=== PATIENT | male | born 1965 | race Caucasian/White ===

== ENCOUNTER 2016-12-14 04:17 | Inpatient (IN) | payer BC ==
[~2016-12-14] VITALS: Ht 177.8 cm; Wt 99.8 kg
[~2016-12-14 04:17] MED LIST: AC325T; CEPH-38 PO; HYDR1TAB3 PO; LEVO750T6 PO; NAPR-243 PO; OMEP20CA6 PO; PRM25T; TRAM50TA2 PO
[2016-12-14] MEDS ORDERED: CLINDAMYCIN INJECTION 900 MG in NS (IVPB) 50 ML IV ONE (04:45)
[2016-12-14 04:49] LABS: BASOPHILS % (AUTO) 0 % (0-10); EOSINOPHILS # (AUTO) 0.2 10^3/uL (0.0-0.3); EOSINOPHILS % (AUTO) 2 % (0-10); LYMPHOCYTES # (AUTO) 2.6 X 10^3 (1.0-4.0); LYMPHOCYTES % (AUTO) 29 % (12-44); MEAN CORPUSCULAR HEMOGLOBIN 32 PG (25-34); MEAN CORPUSCULAR HGB CONC 34 G/DL (32-36); MEAN CORPUSCULAR VOLUME 92 FL (80-99); MEAN PLATELET VOLUME 10.3 FL (7.4-10.4); MONOCYTES # (AUTO) 1.2 X 10^3 (0.0-1.0); MONOCYTES % (AUTO) 13 % (0-12); NEUTROPHILS # (AUTO) 5.1 X 10^3 (1.8-7.8); NEUTROPHILS % (AUTO) 56 % (42-75); PLATELET COUNT 223 10^3/uL (130-400); RED BLOOD COUNT 4.47 10^6/uL (4.35-5.85); RED CELL DISTRIBUTION WIDTH 13.2 % (10.0-14.5); WHITE BLOOD COUNT 9.3 10^3/uL (4.3-11.0)
[2016-12-14 05:00] LABS: PROTHROMBIN TIME PATIENT 13.2 SEC (12.2-14.7)
[2016-12-14] MEDS ORDERED: methylPREDNISolone 125 MG (Solu-MEDROL) VIAL IVP ONE (05:00)
[2016-12-14] MEDS ORDERED: Calcium 500 + Vit D (05:04)
[2016-12-14] MEDS ORDERED: Potassium (05:04)
[2016-12-14] MEDS ORDERED: LORA10TA76 PO (05:04)
[2016-12-14] MEDS ORDERED: MULT-1029 PO (05:04)
[2016-12-14 05:10] LABS: ALANINE AMINOTRANSFERASE 47 U/L (0-55); ALBUMIN 3.8 GM/DL (3.2-4.5); ANION GAP 11 MMOL/L (5-14); ASPARTATE AMINO TRANSFERASE 23 U/L (5-34); BILIRUBIN,TOTAL 0.6 MG/DL (0.1-1.0); BLOOD UREA NITROGEN 11 MG/DL (7-18); BUN/CREATININE RATIO 15; CARBON DIOXIDE 22 MMOL/L (21-32); CHLORIDE 107 MMOL/L (98-107); CREATININE SERUM 0.74 MG/DL (0.60-1.30); GFR ESTIMATED > 60; GLUCOSE 101 MG/DL (70-105); POTASSIUM 3.9 MMOL/L (3.6-5.0); SODIUM 140 MMOL/L (135-145); TOTAL PROTEIN 6.6 GM/DL (6.4-8.2); hs C REACTIVE PROTEIN 1.52 MG/DL (0.00-0.50)
--- NOTE | 2016-12-14 05:12 | ED Lower Extremity ---
General Chief Complaint: Skin/Wound Problems Stated Complaint: RT LEG SWELLING,FEVER Nursing Triage Note: Pt reports edema and redness began in RLE yesterday evening around 1900. Pt Hx of cellulitis with admissions. Nursing Sepsis Screen: No Definite Risk Source: patient History of Present Illness Time seen by provider: 04:35 Initial Comments PT C/O RIGHT LOWER LEG REDNESS, PAIN AND SWELLING SINCE 1899 LAST EVENING PT HAS HAD FEVER--WAS 98.9--PT STATES HIS NORMAL TEMP IS 96.5 NO PARESTHESIAS OR MOTOR DEFICITS PT HAS HAD CELLULITIS OF THIS LEG MULTIPLE TIMES, CLAIMS IT ALL STARTED AFTER HE SPRAINED THE RIGHT ANKLE IN 1986 LAST EPISODE WAS 2010 PT HAS DRY, CRACKED FEET AND HAS HAD 3 OPEN AREAS ON THE BOTTOM OF HIS RIGHT FOOT FOR THE LAST 3 DAYS--VERY PAINFUL. HAS BEEN TREATING WITH ANTIBIOTIC OINTMENT AND KEEPING AREAS COVERED AND THEY ARE GETTING BETTER. PCP: DR. CASANOVA Allergies and Home Medications Allergies Coded Allergies: No Known Drug Allergies (Verified , 10/22/08) Home Medications Loratadine 10 Mg Tablet, 10 MG PO DAILY, (Reported) Multivit-Min/FA/Lycopene/Lut 1 Each Tablet, 1 EACH PO DAILY, (Reported) [Calcium 500 + Vit D] , (Reported) [Potassium] , (Reported) Constitutional: see HPI, fever Respiratory: no symptoms reported, No dyspnea on exertion, No short of breath Cardiovascular: no symptoms reported, No chest pain, No palpitations, No syncope Gastrointestinal: no symptoms reported Genitourinary: no symptoms reported Musculoskeletal: see HPI Skin: see HPI Psychiatric/Neurological: No Symptoms Reported Past Cxalahf-Mkbctj-Tovtae Hx Patient Social History Alcohol Use: Denies Use Recreational Drug Use: No Smoking Status: Former Smoker Type Used: Cigarettes Former Smoker/When Quit: Dec 25, 1997 Recent Foreign Travel: No Contact w/Someone Who Travel: No Recent Infectious Disease Expo: No Recent Hopitalizations: No Seasonal Allergies Seasonal Allergies: No Surgeries HX Surgeries: Yes Surgeries: Orthopedic Respiratory Hx Respiratory Disorders: No Cardiovascular Hx Cardiac Disorders: No Neurological Hx Neurological Disorders: Yes (CLOSED HEAD INJURY, SUBDURAL HEMATOMA) Neurological Disorders: Traumatic Brain Injury Reproductive System Hx Reproductive Disorders: No Sexually Transmitted Disease: No Genitourinary Hx Genitourinary Disorders: No Gastrointestinal Hx Gastrointestinal Disorders: No Musculoskeletal Hx Musculoskeletal Disorders: Yes (RIGHT ANKLE SPRAIN 1986. ) Endocrine Hx Endocrine Disorders: No HEENT HX ENT Disorders: No Cancer Hx Cancer: No Psychosocial Hx Psychiatric Problems: No Integumentary HX Skin/Integumentary Disorder: Yes (CELLULITIS RIGHT LEG MULTIPLE TIMES) Blood Transfusions Hx Blood Disorders: No Physical Exam Vital Signs Vital Sign - Last 12Hours 12/14/16 04:26 Temp 98.6 Pulse 80 Resp 20 B/P (MAP) 147/81 Pulse Ox 95 O2 Delivery Room Air Capillary Refill : Less Than 3 Seconds General Appearance: WD/WN, no apparent distress Cardiovascular: normal peripheral pulses (+ 2-3/4 BILATERALLY), regular rate, rhythm, no murmur Respiratory: normal breath sounds, no respiratory distress, no accessory muscle use Gastrointestinal: soft Hips: bilateral hip normal inspection Legs: right leg other (RIGHT LOWER LEG AND FOOT WITH 2+ EDEMA: ERYTHEMA AND WARMTH TO LOWER LEG WITH TENDERNESS--EXTENDS TO JUST BELOW KNEE; RIGHT FOOT WITH FISSURING AND CRACKING TO SOLE OF FOOT AND BETWEEN TOES--? TINEA PEDIS ? . NO SIGNIFICANT ERYTHEMA OR TENDERNESS TO FOOT. MOTOR/SENSORY/VASCULAR INTACT. 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 as tested, no motor/sensory deficits, alert, normal mood/affect, oriented x 3 Skin: normal color, warm/dry, other ( ABOVE) Progress/Results/Core Measures Results/Orders Lab Results Laboratory Tests Test 12/14/16 04:35 Range/Units White Blood Count 9.3 4.3-11.0 10^3/uL Red Blood Count 4.47 4.35-5.85 10^6/uL Hemoglobin 14.1 13.3-17.7 G/DL Hematocrit 41 40-54 % Mean Corpuscular Volume 92 80-99 FL Mean Corpuscular Hemoglobin 32 25-34 PG Mean Corpuscular Hemoglobin Concent 34 32-36 G/DL Red Cell Distribution Width 13.2 10.0-14.5 % Platelet Count 223 130-400 10^3/uL Mean Platelet Volume 10.3 7.4-10.4 FL Neutrophils (%) (Auto) 56 42-75 % Lymphocytes (%) (Auto) 29 12-44 % Monocytes (%) (Auto) 13 H 0-12 % Eosinophils (%) (Auto) 2 0-10 % Basophils (%) (Auto) 0 0-10 % Neutrophils # (Auto) 5.1 1.8-7.8 X 10^3 Lymphocytes # (Auto) 2.6 1.0-4.0 X 10^3 Monocytes # (Auto) 1.2 H 0.0-1.0 X 10^3 Eosinophils # (Auto) 0.2 0.0-0.3 10^3/uL Basophils # (Auto) 0.0 0.0-0.1 10^3/uL Prothrombin Time 13.2 12.2-14.7 SEC INR Comment 1.0 0.8-1.4 Activated Partial Thromboplast Time 31 24-35 SEC Sodium Level 140 135-145 MMOL/L Potassium Level 3.9 3.6-5.0 MMOL/L Chloride Level 107 98-107 MMOL/L Carbon Dioxide Level 22 21-32 MMOL/L Anion Gap 11 5-14 MMOL/L Blood Urea Nitrogen 11 7-18 MG/DL Creatinine 0.74 0.60-1.30 MG/DL Estimat Glomerular Filtration Rate > 60 BUN/Creatinine Ratio 15 Glucose Level 101 70-105 MG/DL Lactic Acid Level 1.54 0.50-2.00 MMOL/L Calcium Level 9.0 8.5-10.1 MG/DL Total Bilirubin 0.6 0.1-1.0 MG/DL Aspartate Amino Transf (AST/SGOT) 23 5-34 U/L Alanine Aminotransferase (ALT/SGPT) 47 0-55 U/L Alkaline Phosphatase 54 40-136 U/L C-Reactive Protein High Sensitivity 1.52 H 0.00-0.50 MG/DL Total Protein 6.6 6.4-8.2 GM/DL Albumin 3.8 3.2-4.5 GM/DL My Orders Orders - GERRY GOMEZ DO Saline Lock/Iv-Start (12/14/16 04:33) Cbc With Automated Diff (12/14/16 04:33) Comprehensive Metabolic Panel (12/14/16 04:33) Hs C Reactive Protein (12/14/16 04:33) Lactic Acid Analyzer (12/14/16 04:33) Protime With Inr (12/14/16 04:33) Partial Thromboplastin Time (12/14/16 04:33) Blood Culture (12/14/16 04:33) Clindamycin Injection (Cleocin Injection (12/14/16 04:45) Methylprednisolone Sod Succ (Solu-Medrol (12/14/16 05:00) Vital Signs/I&O Vital Sign - Last 12Hours 12/14/16 04:26 Temp 98.6 Pulse 80 Resp 20 B/P (MAP) 147/81 Pulse Ox 95 O2 Delivery Room Air Blood Pressure Mean: 103 Departure Communication Progress Notes 0515--SPOKE WITH DR. CASANOVA, ACCEPTS PT FOR ADMIT. Impression Impression: Primary Impression: CELLULITIS RIGHT LOWER LEG AND FOOT Disposition: ADMITTED INPATIENT Condition: Stable Decision to Admit Reason: Admit from ER (General) Decision to Admit/Date: Dec 14, 2016 Time/Decision to Admit Time: 05:15 Departure-Patient Inst. Referrals: SIOMARA CASANOVA DO (PCP/Family) Primary Care Physician GERRY GOMEZ DO Dec 14, 2016 05:12
[2016-12-14 05:55] VITALS: BP 127/86
--- NOTE | 2016-12-14 08:01 | History & Physicial ---
History of Present Illness History of Present Illness Reason for visit/HPI swelling and redness of right lower extremity. Patient came To the emergency room. Onset since Monday. Redness up to the right knee. Past history cellulitis of right leg multiple times. Patient has dry cracked feet and has 3 open areas on his right foot last 3 days. Patient used triple antibiotic ointment and cover them. Right foot and ankle red and swollen. Has splits on bottom of foot 3 tears. Surgeries right ankle arthroscopy and right shoulder. Family history has cancer, heart and diabetes Date of Admission Dec 14, 2016 at 05:15 Time Seen by Provider: 07:45 I consulted on this patient on 12/14/16 07:56 Attending Physician Jamal Casanova DO Admitting Physician Jamal Casanova DO Consult Allergies and Home Medications Allergies Coded Allergies: No Known Drug Allergies (Verified , 10/22/08) Home Medications Loratadine 10 Mg Tablet, 10 MG PO DAILY, (Reported) Multivit-Min/FA/Lycopene/Lut 1 Each Tablet, 1 EACH PO DAILY, (Reported) [Calcium 500 + Vit D] , (Reported) [Potassium] , (Reported) Past Mdoyeec-Fjtyng-Terbqk Hx Patient Social History Marrital Status: Alcohol Use: Denies Use Recreational Drug Use: No Smoking Status: Former Smoker Former smoker/When Quit: Dec 25, 1997 Type Used: Cigarettes Recent Foreign Travel: No Contact w/other who traveled: No Recent Hopitalizations: No Recent Infectious Disease Expo: No Seasonal Allergies Seasonal Allergies: No Surgeries HX Surgeries: Yes Surgeries: Orthopedic Respiratory Hx Respiratory Disorders: No Cardiovascular Hx Cardiovascular Disorders: No Neurological Hx Neurological Disorders: Yes (CLOSED HEAD INJURY, SUBDURAL HEMATOMA) Neurological Disorders: Traumatic Brain Injury Reproductive System Hx Reproductive Disorders: No Sexually Transmitted Disease: No Genitourinary Hx Genitourinary Disorders: No Gastrointestinal Hx Gastrointestinal Disorders: No Musculoskeletal Hx Musculoskeletal Disorders: Yes (RIGHT ANKLE SPRAIN 1986. ) Endocrine Hx Endocrine Disorders: No HEENT HX ENT Disorders: No Cancer Hx Cancer: No Psychosocial Hx Psychiatric Problems: No Integumentary HX Skin/Integumentary Disorder: Yes (CELLULITIS RIGHT LEG MULTIPLE TIMES) Blood Transfusions Hx Blood Disorders: No Constitutional: other (redness and swelling right leg to the knee) EENTM: no symptoms reported Respiratory: no symptoms reported Cardiovascular: no symptoms reported Gastrointestinal: no symptoms reported Genitourinary: no symptoms reported Skin: other (cellulitis right leg) Psychiatric/Neurological: No Symptoms Reported Physical Exam Vital Signs Vital Sign - Last 12Hours 12/14/16 04:26 Temp 98.6 Pulse 80 Resp 20 B/P (MAP) 147/81 Pulse Ox 95 O2 Delivery Room Air Capillary Refill : Less Than 3 Seconds General Appearance: No Apparent Distress, WD/WN Eyes: Bilateral Eye Normal Inspection HEENT: Normal ENT Inspection Neck: Full Range of Motion, Normal Inspection Respiratory: Chest Non Tender, Lungs Clear, Normal Breath Sounds, No Accessory Muscle Use, No Respiratory Distress Cardiovascular: Regular Rate, Rhythm, No Murmur Gastrointestinal: Non Tender, Soft Extremity: Swelling, Other (redness right extremity lower) Assessment/Plan Assessment and Plan cellulitis right lower leg and foot Problems: Clinical Quality Measures DVT/VTE Risk/Contraindication: Risk Factor Score Per Nursin RFS Level Per Nursing on Admit: 3=High JAMAL CASANOVA DO Dec 14, 2016 08:01
[2016-12-14 08:12] VITALS: BP 146/81
[2016-12-14] MEDS ORDERED: OMEP20TA33 PO (08:20)
[2016-12-14] MEDS ORDERED: POTA99TA21 PO (08:20)
[2016-12-14] MEDS ORDERED: CALC-654 PO (08:20)
[2016-12-14] MEDS ORDERED: CALC300T4 PO (08:24)
[2016-12-14] MEDS ORDERED: ACET325T38 PO (08:24)
--- NOTE | 2016-12-14 09:50 | Diagnostic Imaging Report ---
EXAMINATION: Right lower extremity duplex venous ultrasound. TECHNIQUE: DVT protocol. Multiple sonographic images with color Doppler and waveform interrogation were performed of the right lower extremity veins with compression and augmentation maneuvers. INDICATION: Right leg redness. Cellulitis.. FINDINGS: The right lower extremity veins from the groin to below the knee veins were examined with normal color-flow, compressibility and normal waveform demonstrated. The great saphenous vein is patent. IMPRESSION: No evidence of DVT in the right lower extremity. Dictated by: Dictated on workstation # [id number]
[2016-12-14] MEDS: ENOXAPARIN 40 MG/0.4 ML (LOVENOX) SYR SC SCH (09:56)
[2016-12-14 12:04] VITALS: BP 143/73
[2016-12-14] MEDS: CLINDAMYCIN INJECTION 900 MG in NS (IVPB) 50 ML IV SCH ×2 (14:28→21:40)
[2016-12-14 16:00] VITALS: BP 149/71
--- NOTE | 2016-12-14 17:20 | Podiatry Progress Note ---
Standard Progress Note Progress Notes/Assess & Plan Date Seen by Provider: Dec 14, 2016 Time Seen by Provider: 17:15 Progress/Assessment & Plan Consult dictated. Recommend lotion to the feet daily. We discussed use of occlusion to help the moisture penetrate the skin. I also recommend use of compression hose daily once the cellulitis has resolved. He could also benefit from a soft cast with a unna boot. Continue IV antibotics. He is welcome to follow up in the office upon discharge. Final Diagnosis Cellulitis right leg Idiopathic neuropathy Fissures right foot Edema right foot/ankle/leg Sinus Tarsitis right CARA BISWAS DPM Dec 14, 2016 17:20
[2016-12-14 19:50] VITALS: BP 123/56
[2016-12-15] VITALS: BP 130/68
[2016-12-15] MEDS: CLINDAMYCIN INJECTION 900 MG in NS (IVPB) 50 ML IV SCH ×3 (05:34→21:30)
[2016-12-15 05:41] LABS: BASOPHILS % (AUTO) 0 % (0-10); EOSINOPHILS % (AUTO) 0 % (0-10); LYMPHOCYTES # (AUTO) 2.1 X 10^3 (1.0-4.0); LYMPHOCYTES % (AUTO) 12 % (12-44); MEAN CORPUSCULAR HEMOGLOBIN 31 PG (25-34); MEAN CORPUSCULAR HGB CONC 34 G/DL (32-36); MEAN CORPUSCULAR VOLUME 92 FL (80-99); MEAN PLATELET VOLUME 10.5 FL (7.4-10.4); MONOCYTES # (AUTO) 1.6 X 10^3 (0.0-1.0); MONOCYTES % (AUTO) 9 % (0-12); NEUTROPHILS # (AUTO) 14.5 X 10^3 (1.8-7.8); NEUTROPHILS % (AUTO) 79 % (42-75); PLATELET COUNT 252 10^3/uL (130-400); RED BLOOD COUNT 4.33 10^6/uL (4.35-5.85); RED CELL DISTRIBUTION WIDTH 13.3 % (10.0-14.5); WHITE BLOOD COUNT 18.3 10^3/uL (4.3-11.0)
[2016-12-15 05:59] LABS: BAND NEUTROPHILS 2 %; BASOPHILS % (MANUAL) 0 %; EOSINOPHILS % (MANUAL) 0 %; LYMPHOCYTES % (MANUAL) 8 %; NEUTROPHILS % (MANUAL) 83 %; REACTIVE LYMPHOCYTES 4 %
[2016-12-15 06:08] LABS: ALANINE AMINOTRANSFERASE 45 U/L (0-55); ALBUMIN 3.6 GM/DL (3.2-4.5); ANION GAP 9 MMOL/L (5-14); ASPARTATE AMINO TRANSFERASE 20 U/L (5-34); BILIRUBIN,TOTAL 0.4 MG/DL (0.1-1.0); BLOOD UREA NITROGEN 13 MG/DL (7-18); BUN/CREATININE RATIO 18; CALCIUM 8.7 MG/DL (8.5-10.1); CARBON DIOXIDE 22 MMOL/L (21-32); CHLORIDE 110 MMOL/L (98-107); CREATININE SERUM 0.73 MG/DL (0.60-1.30); GFR ESTIMATED > 60; GLUCOSE 114 MG/DL (70-105); SODIUM 141 MMOL/L (135-145); TOTAL PROTEIN 6.3 GM/DL (6.4-8.2)
[2016-12-15 07:32] VITALS: BP 122/66
--- NOTE | 2016-12-15 07:53 | Progress Note (SOAP) ---
Subjective Time Seen by Provider: 07:45 Subjective/Events-last exam cellulitis right lower leg and foot and ankle. White blood cell count 18,000 today may be due to Solu-Medrol. Patient afebrile. Redness and leg much better. Patient consulted by podiatry. Patient in the right direction. To evaluate White blood cell count tomorrow Objective Exam Vital Signs Date Time Temp Pulse Resp B/P (MAP) Pulse Ox O2 Delivery O2 Flow Rate FiO2 12/15/16 07:32 97.1 86 20 122/66 95 Room Air 12/15/16 00:00 97.1 93 20 130/68 94 Room Air 12/14/16 19:50 99.3 103 18 123/56 94 Room Air 12/14/16 16:00 99.3 112 20 149/71 93 Room Air 12/14/16 12:04 97.7 109 20 143/73 95 Room Air 12/14/16 08:12 98.6 83 20 146/81 94 Room Air 12/14/16 08:00 Room Air I & O 12/15/16 07:00 Intake Total 6650 ml Output Total 1600 ml Balance 5050 ml Capillary Refill : Less Than 3 SecondsLess Than 3 Seconds General Appearance: No Apparent Distress, WD/WN HEENT: Normal ENT Inspection Neck: Full Range of Motion, Normal Inspection Respiratory: Lungs Clear, Normal Breath Sounds, No Accessory Muscle Use, No Respiratory Distress Cardiovascular: Regular Rate, Rhythm Extremity: Other (swelling going down and redness better) Results Lab Laboratory Tests 12/15/16 05:25: White Blood Count 18.3H, Red Blood Count 4.33L, Hemoglobin 13.5, Hematocrit 40, Mean Corpuscular Volume 92, Mean Corpuscular Hemoglobin 31, Mean Corpuscular Hemoglobin Concent 34, Red Cell Distribution Width 13.3, Platelet Count 252, Mean Platelet Volume 10.5H, Neutrophils (%) (Auto) 79H, Lymphocytes (%) (Auto) 12, Monocytes (%) (Auto) 9, Eosinophils (%) (Auto) 0, Basophils (%) (Auto) 0, Neutrophils # (Auto) 14.5H, Lymphocytes # (Auto) 2.1, Monocytes # (Auto) 1.6H, Eosinophils # (Auto) 0.0, Basophils # (Auto) 0.0, Neutrophils % (Manual) 83, Lymphocytes % (Manual) 8, Monocytes % (Manual) 3, Eosinophils % (Manual) 0, Basophils % (Manual) 0, Band Neutrophils 2, Reactive Lymphocytes 4, Blood Morphology Comment NORMAL, Sodium Level 141, Potassium Level 4.0, Chloride Level 110H, Carbon Dioxide Level 22, Anion Gap 9, Blood Urea Nitrogen 13, Creatinine 0.73, Estimat Glomerular Filtration Rate > 60, BUN/Creatinine Ratio 18, Glucose Level 114H, Calcium Level 8.7, Total Bilirubin 0.4, Aspartate Amino Transf (AST/SGOT) 20, Alanine Aminotransferase (ALT/SGPT) 45, Alkaline Phosphatase 53, Total Protein 6.3L, Albumin 3.6 Assessment/Plan Assessment/Plan Assess & Plan/Chief Complaint cellulitis of right leg/ankle/foot. Leukocytosis received Solu-Medrol. Swelling is coming down. Redness is better. Patient in the right direction Clinical Quality Measures DVT/VTE Risk/Contraindication: Risk Factor Score Per Nursin RFS Level Per Nursing on Admit: 3=High Contraindications-Mechi: Other *list below* SIOMARA CASANOVA DO Dec 15, 2016 07:53
[2016-12-15] MEDS: ENOXAPARIN 40 MG/0.4 ML (LOVENOX) SYR SC SCH (08:41)
--- NOTE | 2016-12-15 10:03 | CONSULTATION REPORT ---
DATE OF CONSULTATION: 12/14/2016 REFERRING PHYSICIAN: REASON FOR CONSULT: Foot care. The patient has a history of cellulitis of the right lower extremity causing fissures and cracks and infection of the right lower extremity. He also has a history of right ankle injury. The original injury for the right ankle occurred in 1986. He was last seen by an orthopedic doctor for the right ankle in 2000. The patient indicates that his feet will crack, he will apply a topical antibiotic ointment, keep the area covered until it heals. He has had lower extremity edema being on his feet excessively and he believes that the ankle injury is a contributing factor as well. He develops cellulitis due to the edema of the right lower extremity. He has had several CESILIA hose that he has applied but they seem to cut into the skin right below the knee and after a few days of using them, he has more problems than the CESILIA hose had solved. PAST MEDICAL HISTORY: Includes: 1. Traumatic brain injury. 2. Subdural hematoma. 3. Right ankle sprain in 1986. 4. History of cellulitis of the right lower extremity, at least 4 episodes. 5. History of skin fissures with no specific infection or deep wound right foot. SOCIAL HISTORY: The patient is a former smoker, quit in 1997. No alcohol or illicit drug use indicated. FAMILY HISTORY: His mother and sister have a history of diabetes. The patient is currently afebrile. LOWER EXTREMITY EXAMINATION: The patient has 2/4 dorsalis pedis pulse bilaterally, 1/4 posterior tibial pulse bilaterally. Capillary refill time is less than 3 seconds. Nonpitting edema is noted to the right lower extremity including the ankle and foot. DERMATOLOGICALLY: The patient has superficial fissures to the plantar aspect of the right mid foot area with no erythema, edema or gross signs of bacterial infection noted. No pain with palpation. NEUROLOGICALLY: The patient has intact protective sensation per 10 grams monofilament wire examination bilaterally. There is slight decreased in the vibratory sensation on the left but there is significant decreased vibratory sensation on the right. Deep tendon reflexes to the Achilles tendon are also diminished bilaterally. MUSCULOSKELETAL FINDINGS: The patient has some pain with palpation to the sinus tarsi region as well as the anterior talofibular area of the right lower extremity. There is no pain with passive reasonable range of motion of the ankle joint, subtalar joint, metatarsal joint right foot. ASSESSMENT: 1. Idiopathic neuropathy that could be prediabetic condition. 2. Edema of the right lower extremity with cellulitis. 3. Fissures, right foot noninfected. 4. History of ankle injury and sinus tarsitis right foot. PLAN: Various treatment options were discussed with the patient. I recommend that lotion be applied to the feet daily but not between the toes. We discussed the use of occlusion for the fissures. He understands this process and will implement the instructions that I gave to him today. He is welcome to follow-up in the office once he is discharged. I also recommend compression hose once his cellulitis has resolved to maintain appropriate compression to the veins and avoid further cellulitis if possible. He has tried various compression hose in the past, I instructed the patient that we could fit him in the clinic upon discharge if he would like. Job ID: [id number] Dictated Date: 12/14/2016 17:13:50 Signalling And Communications Engineer Date: 12/15/2016 09:51:57/[email or web address]
[2016-12-15 15:19] VITALS: BP 134/75
[2016-12-16 00:44] VITALS: BP 108/55
[2016-12-16 05:51] LABS: BASOPHILS # (AUTO) 0.1 10^3/uL (0.0-0.1); BASOPHILS % (AUTO) 1 % (0-10); EOSINOPHILS % (AUTO) 0 % (0-10); LYMPHOCYTES # (AUTO) 3.6 X 10^3 (1.0-4.0); LYMPHOCYTES % (AUTO) 38 % (12-44); MEAN CORPUSCULAR HEMOGLOBIN 31 PG (25-34); MEAN CORPUSCULAR HGB CONC 34 G/DL (32-36); MEAN CORPUSCULAR VOLUME 92 FL (80-99); MEAN PLATELET VOLUME 10.4 FL (7.4-10.4); MONOCYTES # (AUTO) 0.8 X 10^3 (0.0-1.0); MONOCYTES % (AUTO) 9 % (0-12); NEUTROPHILS # (AUTO) 4.9 X 10^3 (1.8-7.8); NEUTROPHILS % (AUTO) 52 % (42-75); PLATELET COUNT 227 10^3/uL (130-400); RED BLOOD COUNT 4.29 10^6/uL (4.35-5.85); RED CELL DISTRIBUTION WIDTH 13.5 % (10.0-14.5); WHITE BLOOD COUNT 9.5 10^3/uL (4.3-11.0)
[2016-12-16] MEDS: CLINDAMYCIN INJECTION 900 MG in NS (IVPB) 50 ML IV SCH (05:52)
[2016-12-16 07:28] VITALS: BP 122/71
[2016-12-16] MEDS: ENOXAPARIN 40 MG/0.4 ML (LOVENOX) SYR SC SCH (07:51)
--- NOTE | 2016-12-16 08:07 | Progress Note (SOAP) ---
Subjective Time Seen by Provider: 08:00 Subjective/Events-last exam PATIENT DOING MUCH BETTER TODAY. Leg has no redness. Right leg does have some swelling. Patient be discharged today. Patient sent, clindamycin 300 mg number 18 one 3 times a day. 2 office next Monday at 330 p.m. Objective Exam Vital Signs Date Time Temp Pulse Resp B/P (MAP) Pulse Ox O2 Delivery O2 Flow Rate FiO2 12/16/16 07:28 97.5 72 20 122/71 98 Room Air 12/16/16 00:44 97.7 85 20 108/55 95 Room Air 12/15/16 15:19 98.6 81 20 134/75 95 Room Air I & O 12/16/16 07:00 Intake Total 3670 ml Balance 3670 ml Capillary Refill : Less Than 3 SecondsLess Than 3 Seconds General Appearance: No Apparent Distress, WD/WN HEENT: Normal ENT Inspection Neck: Full Range of Motion, Normal Inspection Respiratory: Chest Non Tender, Lungs Clear, Normal Breath Sounds, No Accessory Muscle Use, No Respiratory Distress Cardiovascular: Regular Rate, Rhythm, No Murmur Gastrointestinal: non tender Extremity: Swelling, Other (no redness in right leg has swelling still) Results Lab Laboratory Tests 12/16/16 05:25 Laboratory Tests 12/16/16 05:25: White Blood Count 9.5, Red Blood Count 4.29L, Hemoglobin 13.4, Hematocrit 40, Mean Corpuscular Volume 92, Mean Corpuscular Hemoglobin 31, Mean Corpuscular Hemoglobin Concent 34, Red Cell Distribution Width 13.5, Platelet Count 227, Mean Platelet Volume 10.4, Neutrophils (%) (Auto) 52, Lymphocytes (%) (Auto) 38 , Monocytes (%) (Auto) 9, Eosinophils (%) (Auto) 0, Basophils (%) (Auto) 1, Neutrophils # (Auto) 4.9, Lymphocytes # (Auto) 3.6, Monocytes # (Auto) 0.8, Eosinophils # (Auto) 0.0, Basophils # (Auto) 0.1 Microbiology 12/14/16 Blood Culture - Preliminary, Resulted No growth Radiology CATRACHITO MATHIAS REC#: [id number] PT STATUS: ADM IN : 1965 PHYSICIAN: SIOMARA CASANOVA DO ADMIT DATE: 12/14/16 Signed Date of Exam: 12/14/16 US VENOUS LOWER EXT RT EXAMINATION: Right lower extremity duplex venous ultrasound. TECHNIQUE: DVT protocol. Multiple sonographic images with color Doppler and waveform interrogation were performed of the right lower extremity veins with compression and augmentation maneuvers. INDICATION: Right leg redness. Cellulitis.. FINDINGS: The right lower extremity veins from the groin to below the knee veins were examined with normal color-flow, compressibility and normal waveform demonstrated. The great saphenous vein is patent. IMPRESSION: No evidence of DVT in the right lower extremity. Dictated by: Dictated on workstation # [id number] Dict: 12/14/16 0947 Trans: 12/14/16 0948 Interpreted by: GHANSHYAM COYNE MD Electronically signed by: GHANSHYAM COYNE MD 12/14/1648 Assessment/Plan Assessment/Plan Assess & Plan/Chief Complaint cellulitis of right leg/ankle/foot. Leukocytosis received Solu-Medrol. Swelling is coming down. Redness is better. Patient in the right direction. . 12/16/16. Cellulitis of right leg/ankle/foot. Redness is gone. This patient still has some swelling. To discharge today on clindamycin. 2 office on Monday. Leukocytosis better Clinical Quality Measures DVT/VTE Risk/Contraindication: Risk Factor Score Per Nursin RFS Level Per Nursing on Admit: 3=High Contraindications-Mechi: Other *list below* SIOMARA CASANOVA DO Dec 16, 2016 08:07
[2016-12-16] MEDS ORDERED: CLIN300C11 PO (08:43)
[2016-12-16] MEDS ORDERED: CLINDAMYCIN 150 MG (CLEOCIN) CAP PO ONE (14:00)
--- NOTE | 2016-12-20 07:25 | Discharge Summary ---
Diagnosis/Chief Complaint Date of Admission Dec 14, 2016 at 05:15 Date of Discharge Dec 16, 2016 at 09:10 Discharge Date: Dec 16, 2016 Discharge Time: 07:20 Admission Diagnosis Admission Diagnosis cellulitis right lower leg and foot Discharge Diagnosis cellulitis of right lower limb. Changes in skin texture. Leukocytosis probably due to Solu-Medrol. Edema right lower extremity area Pain in right ankle and joints of right foot. Personal history of nicotine dependence Fissures of right foot Reason Hospital Visit swelling and redness of right lower extremity. Patient came To the emergency room. Onset since Monday. Redness up to the right knee. Past history cellulitis of right leg multiple times. Patient has dry cracked feet and has 3 open areas on his right foot last 3 days. Patient used triple antibiotic ointment and cover them. Right foot and ankle red and swollen. Has splits on bottom of foot 3 tears. Surgeries right ankle arthroscopy and right shoulder. Family history has cancer, heart and diabetes Discharge Summary Consultations podiatry Discharge Physical Examination Allergies: Coded Allergies: No Known Drug Allergies (Verified , 10/22/08) Vitals & I&Os Vital Signs Date Time Temp Pulse Resp B/P (MAP) Pulse Ox O2 Delivery O2 Flow Rate FiO2 12/16/16 09:00 12/16/16 07:28 97.5 72 20 98 Room Air Hospital Course Labs (last 24 hrs) Laboratory Tests 12/14/16 04:35: White Blood Count 9.3, Red Blood Count 4.47, Hemoglobin 14.1, Hematocrit 41, Mean Corpuscular Volume 92, Mean Corpuscular Hemoglobin 32, Mean Corpuscular Hemoglobin Concent 34, Red Cell Distribution Width 13.2, Platelet Count 223, Mean Platelet Volume 10.3, Neutrophils (%) (Auto) 56, Lymphocytes (%) (Auto) 29 , Monocytes (%) (Auto) 13H, Eosinophils (%) (Auto) 2, Basophils (%) (Auto) 0, Neutrophils # (Auto) 5.1, Lymphocytes # (Auto) 2.6, Monocytes # (Auto) 1.2H, Eosinophils # (Auto) 0.2, Basophils # (Auto) 0.0, Prothrombin Time 13.2, INR Comment 1.0, Activated Partial Thromboplast Time 31, Sodium Level 140, Potassium Level 3.9, Chloride Level 107, Carbon Dioxide Level 22, Anion Gap 11, Blood Urea Nitrogen 11, Creatinine 0.74, Estimat Glomerular Filtration Rate > 60 , BUN/Creatinine Ratio 15, Glucose Level 101, Lactic Acid Level 1.54, Calcium Level 9.0, Total Bilirubin 0.6, Aspartate Amino Transf (AST/SGOT) 23, Alanine Aminotransferase (ALT/SGPT) 47, Alkaline Phosphatase 54, C-Reactive Protein High Sensitivity 1.52H, Total Protein 6.6, Albumin 3.8 12/15/16 05:25: White Blood Count 18.3H, Red Blood Count 4.33L, Hemoglobin 13.5, Hematocrit 40, Mean Corpuscular Volume 92, Mean Corpuscular Hemoglobin 31, Mean Corpuscular Hemoglobin Concent 34, Red Cell Distribution Width 13.3, Platelet Count 252, Mean Platelet Volume 10.5H, Neutrophils (%) (Auto) 79H, Lymphocytes (%) (Auto) 12, Monocytes (%) (Auto) 9, Eosinophils (%) (Auto) 0, Basophils (%) (Auto) 0, Neutrophils # (Auto) 14.5H, Lymphocytes # (Auto) 2.1, Monocytes # (Auto) 1.6H, Eosinophils # (Auto) 0.0, Basophils # (Auto) 0.0, Sodium Level 141, Potassium Level 4.0, Chloride Level 110H, Carbon Dioxide Level 22, Anion Gap 9, Blood Urea Nitrogen 13, Creatinine 0.73, Estimat Glomerular Filtration Rate > 60, BUN/ Creatinine Ratio 18, Glucose Level 114H, Calcium Level 8.7, Total Bilirubin 0.4 , Aspartate Amino Transf (AST/SGOT) 20, Alanine Aminotransferase (ALT/SGPT) 45, Alkaline Phosphatase 53, Total Protein 6.3L, Albumin 3.6, Neutrophils % (Manual ) 83, Lymphocytes % (Manual) 8, Monocytes % (Manual) 3, Eosinophils % (Manual) 0 , Basophils % (Manual) 0, Band Neutrophils 2, Reactive Lymphocytes 4, Blood Morphology Comment NORMAL 12/16/16 05:25: White Blood Count 9.5, Red Blood Count 4.29L, Hemoglobin 13.4, Hematocrit 40, Mean Corpuscular Volume 92, Mean Corpuscular Hemoglobin 31, Mean Corpuscular Hemoglobin Concent 34, Red Cell Distribution Width 13.5, Platelet Count 227, Mean Platelet Volume 10.4, Neutrophils (%) (Auto) 52, Lymphocytes (%) (Auto) 38 , Monocytes (%) (Auto) 9, Eosinophils (%) (Auto) 0, Basophils (%) (Auto) 1, Neutrophils # (Auto) 4.9, Lymphocytes # (Auto) 3.6, Monocytes # (Auto) 0.8, Eosinophils # (Auto) 0.0, Basophils # (Auto) 0.1 Microbiology 12/14/16 Blood Culture - Final, Complete No growth Laboratory Tests 12/14/16 04:35 12/15/16 05:25 12/16/16 05:25 Pending Labs Microbiology Date/Time Source Procedure Growth Status 12/14/16 05:13 Peripheral Rt Ac Blood Culture - Final No growth Complete 12/14/16 04:48 Peripheral Lt Ac Blood Culture - Final No growth Complete Laboratory Tests 12/14/16 04:35: White Blood Count 9.3, Red Blood Count 4.47, Hemoglobin 14.1, Hematocrit 41, Mean Corpuscular Volume 92, Mean Corpuscular Hemoglobin 32, Mean Corpuscular Hemoglobin Concent 34, Red Cell Distribution Width 13.2, Platelet Count 223, Mean Platelet Volume 10.3, Neutrophils (%) (Auto) 56, Lymphocytes (%) (Auto) 29 , Monocytes (%) (Auto) 13, Eosinophils (%) (Auto) 2, Basophils (%) (Auto) 0, Neutrophils # (Auto) 5.1, Lymphocytes # (Auto) 2.6, Monocytes # (Auto) 1.2, Eosinophils # (Auto) 0.2, Basophils # (Auto) 0.0, Prothrombin Time 13.2, INR Comment 1.0, Activated Partial Thromboplast Time 31, Sodium Level 140, Potassium Level 3.9, Chloride Level 107, Carbon Dioxide Level 22, Anion Gap 11, Blood Urea Nitrogen 11, Creatinine 0.74, Estimat Glomerular Filtration Rate > 60 , BUN/Creatinine Ratio 15, Glucose Level 101, Lactic Acid Level 1.54, Calcium Level 9.0, Total Bilirubin 0.6, Aspartate Amino Transf (AST/SGOT) 23, Alanine Aminotransferase (ALT/SGPT) 47, Alkaline Phosphatase 54, C-Reactive Protein High Sensitivity 1.52, Total Protein 6.6, Albumin 3.8 12/15/16 05:25: White Blood Count 18.3, Red Blood Count 4.33, Hemoglobin 13.5, Hematocrit 40, Mean Corpuscular Volume 92, Mean Corpuscular Hemoglobin 31, Mean Corpuscular Hemoglobin Concent 34, Red Cell Distribution Width 13.3, Platelet Count 252, Mean Platelet Volume 10.5, Neutrophils (%) (Auto) 79, Lymphocytes (%) (Auto) 12 , Monocytes (%) (Auto) 9, Eosinophils (%) (Auto) 0, Basophils (%) (Auto) 0, Neutrophils # (Auto) 14.5, Lymphocytes # (Auto) 2.1, Monocytes # (Auto) 1.6, Eosinophils # (Auto) 0.0, Basophils # (Auto) 0.0, Sodium Level 141, Potassium Level 4.0, Chloride Level 110, Carbon Dioxide Level 22, Anion Gap 9, Blood Urea Nitrogen 13, Creatinine 0.73, Estimat Glomerular Filtration Rate > 60, BUN/ Creatinine Ratio 18, Glucose Level 114, Calcium Level 8.7, Total Bilirubin 0.4, Aspartate Amino Transf (AST/SGOT) 20, Alanine Aminotransferase (ALT/SGPT) 45, Alkaline Phosphatase 53, Total Protein 6.3, Albumin 3.6, Neutrophils % (Manual) 83, Lymphocytes % (Manual) 8, Monocytes % (Manual) 3, Eosinophils % (Manual) 0, Basophils % (Manual) 0, Band Neutrophils 2, Reactive Lymphocytes 4, Blood Morphology Comment NORMAL 12/16/16 05:25: White Blood Count 9.5, Red Blood Count 4.29, Hemoglobin 13.4, Hematocrit 40, Mean Corpuscular Volume 92, Mean Corpuscular Hemoglobin 31, Mean Corpuscular Hemoglobin Concent 34, Red Cell Distribution Width 13.5, Platelet Count 227, Mean Platelet Volume 10.4, Neutrophils (%) (Auto) 52, Lymphocytes (%) (Auto) 38 , Monocytes (%) (Auto) 9, Eosinophils (%) (Auto) 0, Basophils (%) (Auto) 1, Neutrophils # (Auto) 4.9, Lymphocytes # (Auto) 3.6, Monocytes # (Auto) 0.8, Eosinophils # (Auto) 0.0, Basophils # (Auto) 0.1 Radiology Reviewed NAME: CATRACHITO MATHIAS Heriberto MODI REC#: [id number] PT STATUS: ADM IN : 1965 PHYSICIAN: SIOMARA CASANOVA DO ADMIT DATE: 12/14/16 Signed Date of Exam: 12/14/16 US VENOUS LOWER EXT RT EXAMINATION: Right lower extremity duplex venous ultrasound. TECHNIQUE: DVT protocol. Multiple sonographic images with color Doppler and waveform interrogation were performed of the right lower extremity veins with compression and augmentation maneuvers. INDICATION: Right leg redness. Cellulitis.. FINDINGS: The right lower extremity veins from the groin to below the knee veins were examined with normal color-flow, compressibility and normal waveform demonstrated. The great saphenous vein is patent. IMPRESSION: No evidence of DVT in the right lower extremity. Dictated by: Dictated on workstation # [id number] Dict: 12/14/16946 Trans: 12/14/16947 Interpreted by: GHANSHYAM COYNE MD Electronically signed by: GHANSHYAM COYNE MD 12/14/16947 Discussion & Recommendations patient's right foot and leg much better Discharge Home Medications: Active Scripts Active Clindamycin HCl 300 Mg Capsule 300 Mg PO TID Reported Tums (Calcium Carbonate) 300 Mg Tab.chew 300-600 Mg PO QID PRN Tylenol (Acetaminophen) 325 Mg Tablet 650 Mg PO Q4H PRN Prilosec Otc (Omeprazole Magnesium) 20 Mg Tablet.dr 20 Mg PO DAILY PRN Calcium 500 + D Tablet (Calcium Carbonate/Vitamin D3) 1 Each Tablet 1 Tab PO DAILY Potassium (Potassium Gluconate) 99 Mg Tablet 99 Mg PO DAILY Claritin (Loratadine) 10 Mg Tablet 10 Mg PO DAILY Centrum Silver Tablet (Multivit-Min/FA/Lycopene/Lut) 1 Each Tablet 1 Tab PO DAILY Instructions to patient/family Please see electonic discharge instructions given to patient. Clinical Quality Measures DVT/VTE Risk/Contraindication: Risk Factor Score Per Nursin RFS Level Per Nursing on Admit: 3=High Contraindications-Mechi: Other *list below* SIOMARA CASANOVA DO Dec 20, 2016 07:25
== END 2016-12-16 09:10 | disposition home or self-care (01) | DRG 603 ==
LOC: EDUNIT# 04:17 → ER 04:21 → 4TH 05:15
PROVIDERS: ADMIT Family Medicine; ATTEND Family Medicine
DX: L03.115 Cellulitis of right lower limb (principal); G60.9 Hereditary and idiopathic neuropathy, unspecified; R23.4 Changes in skin texture; M25.571 Pain in right ankle and joints of right foot; D72.829 Elevated white blood cell count, unspecified; T49.0X5A Adverse effect of local antifungal, anti-infective and anti-inflammatory drugs, initial encounter; Z87.891 Personal history of nicotine dependence; Z87.820 Personal history of traumatic brain injury
CPT/HCPCS: 36415; 80053; 83605; 85007; 85025; 85027; 85610; 85730; 86141; 87040; 96365; 96375

== ENCOUNTER → 2018-03-27 | Outpatient (CLI) | payer BC ==
[~2018-03-27] MED LIST changes: +ACET325T38 PO; +ATOR10TA66 PO; +CALC-654 PO; +CALC300T4 PO; +CLIN300C11 PO; +Calcium 500 + Vit D; +LORA10TA76 PO; +MULT-1029 PO; +OMEP20TA33 PO; +POTA99TA21 PO; +Potassium
--- NOTE | 2018-03-27 09:33 | Diagnostic Imaging Report ---
PROCEDURE: US Gallbladder. TECHNIQUE: Multiple real-time grayscale images were obtained over the right upper quadrant in various projections. INDICATION: Right upper quadrant pain. COMPARISON: CT abdomen and pelvis of 04/03/2010 FINDINGS: The liver has diffuse increased echogenicity indicative of hepatic steatosis. It is borderline enlarged measuring 18.5 cm in length. No focal hepatic lesion is appreciated. The gallbladder is distended without gallstones, wall thickening, or pericholecystic fluid. The common bile duct is obscured by overlying bowel gas. Pancreas is obscured by overlying bowel gas. The right kidney is normal in size. No hydronephrosis, shadowing calculi, or suspicious mass lesion. Incidental note of a supraumbilical fat-containing hernia, unchanged since CT of 2009. IMPRESSION: 1. Borderline hepatomegaly with diffuse hepatic steatosis. 2. Normal gallbladder. 3. Small fat-containing supraumbilical hernia is unchanged since 2010. Dictated by: Dictated on workstation # [id number]
== END ==
LOC: RAD 08:44
PROVIDERS: ATTEND Surgery
DX: K76.0 Fatty (change of) liver, not elsewhere classified (principal); K42.9 Umbilical hernia without obstruction or gangrene
CPT/HCPCS: 76705

== ENCOUNTER 2018-03-29 05:38 | Outpatient (CLI) | payer BC ==
[~2018-03-29] VITALS: Ht 177.8 cm; Wt 110.2 kg
[~2018-03-29 05:38] MED LIST changes: -ATOR10TA66 PO
[2018-03-29] MEDS ORDERED: ATOR10TA66 PO (13:11)
== END 2018-03-29 13:13 | disposition home or self-care (01) ==
LOC: PREOP 05:38
PROVIDERS: ATTEND Surgery
DX: Z01.818 Encounter for other preprocedural examination (principal)

== ENCOUNTER 2018-04-02 05:42 | Outpatient (CLI) | payer BC ==
[~2018-04-02] VITALS: Ht 177.8 cm; Wt 110.2 kg
[~2018-04-02 05:42] MED LIST changes: +ATOR10TA66 PO
[2018-04-02 10:07] LABS: BASOPHILS % (AUTO) 0 % (0-10); EOSINOPHILS # (AUTO) 0.1 10^3/uL (0.0-0.3); EOSINOPHILS % (AUTO) 1 % (0-10); HEMATOCRIT 45 % (40-54); HEMOGLOBIN 15.4 G/DL (13.3-17.7); LYMPHOCYTES # (AUTO) 2.4 X 10^3 (1.0-4.0); LYMPHOCYTES % (AUTO) 30 % (12-44); MEAN CORPUSCULAR HEMOGLOBIN 31 PG (25-34); MEAN CORPUSCULAR HGB CONC 35 G/DL (32-36); MEAN CORPUSCULAR VOLUME 91 FL (80-99); MEAN PLATELET VOLUME 11.4 FL (7.4-10.4); MONOCYTES # (AUTO) 0.7 X 10^3 (0.0-1.0); MONOCYTES % (AUTO) 8 % (0-12); NEUTROPHILS # (AUTO) 4.9 X 10^3 (1.8-7.8); NEUTROPHILS % (AUTO) 61 % (42-75); PLATELET COUNT 297 10^3/uL (130-400); RED BLOOD COUNT 4.94 10^6/uL (4.35-5.85); RED CELL DISTRIBUTION WIDTH 13.4 % (10.0-14.5); WHITE BLOOD COUNT 8.1 10^3/uL (4.3-11.0)
== END 2018-04-02 12:50 | disposition home or self-care (01) ==
LOC: PREOP 05:42
PROVIDERS: ATTEND Surgery
DX: Z01.812 Encounter for preprocedural laboratory examination (principal); Z11.2 Encounter for screening for other bacterial diseases; Z12.11 Encounter for screening for malignant neoplasm of colon; K21.0 Gastro-esophageal reflux disease with esophagitis; Z80.0 Family history of malignant neoplasm of digestive organs
CPT/HCPCS: 36415; 85025; 87081

== ENCOUNTER 2018-04-02 09:19 | Day surgery (SDC) | payer BC ==
[~2018-04-02] VITALS: Ht 177.8 cm; Wt 110.2 kg
--- NOTE | 2018-04-02 09:24 | Conscious Sedation/ASA ---
Conscious Sedation Pre-Proced Time 09:24 ASA Score 2 For ASA 3 and 4: Consider anesthesia and medical clearance. Also, for patients with a history of failed moderate sedation consider anesthesia. Airway Lungs Heart ASA score ASA 1: a normal healthy patient ASA 2: a patient with a mild systemic disease (mid diabetes, controlled hypertension, obesity ASA 3: a patient with a severe systemic disease that limits activity (angina , COPD, prior Myocardial infarction) ASA 4: a patient with an incapacitating disease that is a constant threat to life (CHF, renal failure) ASA 5: a moribund patient not expected to survive 24 hrs. (ruptured aneurysm) ASA 6: a declared brain patient whose organs are being harvested. For emergent operations, add the letter E after the classification Mallampati Classification Grade 1 Sedation Plan Discussed options with patient/fam The patient is an appropriate candidate to undergo the planned procedure, sedation, and anesthesia. The patient immediately re-assessed prior to indication. MASON SMITH MD Apr 02, 2018 09:24
[2018-04-02] MEDS ORDERED: NS IV 500 ML 500 ML ONE (09:41)
[2018-04-02] MEDS ORDERED: NS IV 500 ML 500 ML IV PRN (09:42)
[2018-04-02] MEDS ORDERED: MIDAZOLAM 2 MG/2 ML (VERSED) VIAL IVP ONE (09:45)
[2018-04-02] MEDS ORDERED: HURRICAINE EXT TUBE (BENZOCAINE) XX PRN (09:45)
[2018-04-02] MEDS ORDERED: fentaNYL INJECTION 100 MCG/2 ML AMP IVP ONE (09:45)
[2018-04-02 09:55] VITALS: BP 144/88
[2018-04-02] MEDS ORDERED: fentaNYL INJECTION 100 MCG/2 ML AMP ONE (10:20)
[2018-04-02] MEDS ORDERED: MIDAZOLAM 2 MG/2 ML (VERSED) VIAL ONE ×4 (10:20)
[2018-04-02] MEDS ORDERED: HURRICAINE EXT TUBE (BENZOCAINE) ONE (10:20)
--- NOTE | 2018-04-02 11:05 | Endo Procedure Record ---
Endo Procedure Report Date of Procedure Last Colonoscopy: Yes Apr 02, 2018 Surgeon (s) MASON SMITH MD Post Procedure/Op Diagnosis EGD: Mild distal gastritis Normal colonoscopy Procedure Performed EGD with antral biopsy for H. pylori Colonoscopy to cecum Description of Procedure Anesthesia Type: Conscious Sedation Specimen(s) collected/removed antral mucosa for H. pylori Description of the Procedure Indication for the procedure: This gentleman came in for an endoscopic assessment of symptoms of reflux and for screening colonoscopy. He reported a family history of colon cancer. Informed consent was obtained after reviewing the procedures in detail. Description of the procedures: EGD/antral biopsy: He was placed in left lateral decubitus position and his vital signs were monitored. Conscious sedation was achieved using Versed and fentanyl. The flexible gastroscope was introduced down the esophagus, past the stomach, into the proximal duodenum. Findings: Esophagus: Normal Stomach: Mild distal gastritis Biopsy for H. pylori was obtained. Duodenum normal. He tolerated the procedure well and was turned around in preparation for colonoscopy. Impression: Symptoms of reflux disease. Mild distal gastritis. H. pylori status pending. Colonoscopy: Digital rectal examination was unremarkable. The colonoscope was then introduced into the rectum and advanced all the way up to the cecum. It was then withdrawn slowly and the mucosa examined in a systematic fashion. There was no abnormality. He tolerated the procedure well and was taken back to the nursing area in a stable condition. Impression: Normal screening colonoscopy. Positive family history. Recommend repeating in 5 years. Copy Copies To 1: SIOMARA CASANOVA XAVIER M MD Apr 02, 2018 11:05
--- NOTE | 2018-04-02 11:07 | Discharge Inst-Simple/Standard ---
Discharge Inst-Standard Discharge Medications New, Converted or Re-Newed RX: Other Patient Instructions/Follow Up Plan of Care/Instructions/FU: to return for surgery next week, as scheduled. Screening colonoscopy in 5 years Activity as Tolerated: Yes Discharge Diet: No Restrictions MASON SMITH MD Apr 02, 2018 11:07
[2018-04-02 11:20] VITALS: BP 118/71
[2018-04-02 11:50] VITALS: BP 134/90
[2018-04-02 12:50] VITALS: BP 134/90
== END 2018-04-02 12:50 | disposition home or self-care (01) ==
LOC: ENDO 09:19
PROVIDERS: ATTEND Surgery
DX: Z12.11 Encounter for screening for malignant neoplasm of colon (principal); K29.70 Gastritis, unspecified, without bleeding; K21.9 Gastro-esophageal reflux disease without esophagitis; K43.9 Ventral hernia without obstruction or gangrene; Z80.0 Family history of malignant neoplasm of digestive organs

== ENCOUNTER 2018-04-11 10:50 | Day surgery (SDC) | payer BC ==
[~2018-04-11] VITALS: Ht 177.8 cm; Wt 106.6 kg
--- OUTSIDE RECORDS SUMMARY | 2018-04-11 11:00 | XMS REPORT | Continuity of Care Document ---
Author Author [facility] Organization [facility] Address Unknown Phone Unavailable Allergies Active Description Code Type Severity Reaction Onset Reported/Identified Relationship to Patient Clinical Status Yes No Known Drug Allergies [id number] Drug Allergy Unknown N/A 12/25/2014 Medications There is no data. Problems Date Dx Coded Attending Type Code Diagnosis Diagnosed By 04/03/2010 Ot 789.03 11/10/2010 Ot 038.9 11/10/2010 Ot 536.2 11/10/2010 Ot 682.6 11/10/2010 Ot 995.91 12/17/2014 Ot 789.00 12/17/2014 Ot 789.1 12/25/2014 Ot 789.00 12/25/2014 Ot 789.1 12/25/2014 LELAND GARLAND, CORTEZ Lo Ot V72.84 12/25/2014 LELAND GARLAND, CORTEZ Lo Ot V76.51 12/25/2014 LELAND GARLAND, CORTEZ Lo Ot V10.05 HX OF COLONIC MALIGNANCY 12/25/2014 LELAND GARLAND, CORTEZ Lo Ot V76.51 SCREEN MAL NEOP-COLON 12/26/2014 Ot 789.00 12/26/2014 Ot 789.1 12/26/2014 LELAND GARLAND, CORTEZ Lo Ot V72.84 12/26/2014 ELLAND GARLAND, CORTEZ Lo Ot V76.51 12/26/2014 Ot 789.00 12/26/2014 Ot 789.1 12/26/2014 LELAND GARLAND, CORTEZ Lo Ot V72.84 12/26/2014 LELAND GARLAND, CORTEZ Lo Ot V76.51 01/01/2015 Ot 789.00 01/01/2015 Ot 789.1 01/01/2015 LELAND GARLAND, CORTEZ Lo Ot V72.84 01/01/2015 LELAND GARLAND, CORTEZ Lo Ot V76.51 01/01/2015 LELAND GARLAND, CORTEZ Lo Ot V72.84 01/01/2015 LELAND GARLAND, CORTEZ Lo Ot V76.51 01/01/2015 Ot 789.00 01/01/2015 Ot 789.1 01/01/2015 LELAND GARLAND, CORTEZ Lo Ot V72.84 01/01/2015 LELAND GARLAND, CORTEZ Lo Ot V76.51 01/02/2015 Ot 789.00 01/02/2015 Ot 789.1 01/02/2015 LELAND GARLAND, CORTEZ Lo Ot V72.84 01/02/2015 LELAND GARLAND, CORTEZ Lo Ot V76.51 01/29/2015 Ot 789.00 01/29/2015 Ot 789.1 01/29/2015 LELAND GARLAND, CORTEZ Lo Ot V72.84 01/29/2015 LELAND GARLAND, CORTEZ Lo Ot V76.51 03/03/2015 Ot 789.00 03/03/2015 Ot 789.1 03/03/2015 LELAND GARLAND, CORTEZ Lo Ot V72.84 03/03/2015 LELAND GARLAND, CORTEZ Lo Ot V76.51 09/12/2016 Ot 079.99 09/12/2016 Ot 780.60 09/12/2016 Ot 786.2 12/14/2016 LELAND GARLAND, CORTEZ Lo Ot V72.84 EXAM PRE-OPERATIVE NOS 12/14/2016 LELAND GARLAND, CORTEZ Lo Ot V76.51 SCREEN MAL NEOP-COLON 12/15/2016 EDILBERTO , SIOMARA Ramsey Ot G60.9 HEREDITARY AND IDIOPATHIC NEUROPATHY, UN 12/15/2016 MITCHELLORTIZLUCRECIA SIOMARA NOLASCO Ot L03.115 CELLULITIS OF RIGHT LOWER LIMB 12/15/2016 SIOMARA CASANOVA DO Ot M25.571 PAIN IN RIGHT ANKLE AND JOINTS OF RIGHT 12/15/2016 MITCHELLORTIZLUCRECIA SIOMARA NOLASCO Ot R23.4 CHANGES IN SKIN TEXTURE 12/15/2016 MITCHELLORTIZLUCRECIA SIOMARA NOLASCO Ot Z87.820 PERSONAL HISTORY OF TRAUMATIC BRAIN INJU 12/15/2016 DINESHLUCRECIA SIOMARA NOLASCO Ot Z87.891 PERSONAL HISTORY OF NICOTINE DEPENDENCE 12/16/2016 SIOMARA CASANOVA DO Ot D72.829 ELEVATED WHITE BLOOD CELL COUNT, UNSPECI 12/16/2016 SIOMARA CASANOVA DO Ot G60.9 HEREDITARY AND IDIOPATHIC NEUROPATHY, UN 12/16/2016 SIOMARA CASANOVA DO Ot L03.115 CELLULITIS OF RIGHT LOWER LIMB 12/16/2016 GELLENDER DO, SIOMARA Ramsey Ot M25.571 PAIN IN RIGHT ANKLE AND JOINTS OF RIGHT 12/16/2016 GELLENDER DO, SIOMARA Ramsey Ot R23.4 CHANGES IN SKIN TEXTURE 12/16/2016 GELLENDER DO, SIOMARA Ramsey Ot T49.0X5A ADVERSE EFFECT OF LOCAL ANTIFUNG/INFECT/ 12/16/2016 GELLENDER DO, SIOMARA Ramsey Ot Z87.820 PERSONAL HISTORY OF TRAUMATIC BRAIN INJU 12/16/2016 GELLENDER DO, SIOMARA Ramsey Ot Z87.891 PERSONAL HISTORY OF NICOTINE DEPENDENCE 12/16/2016 GELLENDER DO, SIOMARA Ramsey Ot D72.829 ELEVATED WHITE BLOOD CELL COUNT, UNSPECI 12/16/2016 GELLENDER DO, SIOMARA Ramsey Ot G60.9 HEREDITARY AND IDIOPATHIC NEUROPATHY, UN 12/16/2016 GELLENDER DO, SIOMARA Ramsey Ot L03.115 CELLULITIS OF RIGHT LOWER LIMB 12/16/2016 GELLENDER DO, SIOMARA Ramsey Ot M25.571 PAIN IN RIGHT ANKLE AND JOINTS OF RIGHT 12/16/2016 GELLENDER DO, SIOMARA Ramsey Ot R23.4 CHANGES IN SKIN TEXTURE 12/16/2016 GELLENDER DO, SIOMARA Ramsey Ot T49.0X5A ADVERSE EFFECT OF LOCAL ANTIFUNG/INFECT/ 12/16/2016 GELLENDER DO, SIOMARA Ramsey Ot Z87.820 PERSONAL HISTORY OF TRAUMATIC BRAIN INJU 12/16/2016 GELLENDER DO, SIOMARA Ramsey Ot Z87.891 PERSONAL HISTORY OF NICOTINE DEPENDENCE 08/13/2017 Ot 079.99 08/13/2017 Ot 780.60 08/13/2017 Ot 786.2 03/27/2018 LELAND GARLAND, CORTEZ Lo Ot V72.84 EXAM PRE-OPERATIVE NOS 03/27/2018 LELAND GARLAND, CORTEZ Lo Ot V76.51 SCREEN MAL NEOP-COLON 03/28/2018 SARAH GARLAND, MASON Herron Ot K42.9 UMBILICAL HERNIA WITHOUT OBSTRUCTION OR 03/28/2018 SARAH GARLAND, MASON Herron Ot K76.0 FATTY (CHANGE OF) LIVER, NOT ELSEWHERE C 03/29/2018 SARAH GARLAND, MASON Herron Ot Z01.818 ENCOUNTER FOR OTHER PREPROCEDURAL EXAMIN 03/30/2018 SARAH GARLAND, MASON Herron Ot Z01.818 ENCOUNTER FOR OTHER PREPROCEDURAL EXAMIN 04/03/2018 SARAH GARLAND, MASON Herron Ot K21.9 GASTRO-ESOPHAGEAL REFLUX DISEASE WITHOUT 04/03/2018 MASON SMITH MD, Ot K29.70 GASTRITIS, UNSPECIFIED, WITHOUT BLEEDING 04/03/2018 MASON SMITH MD, Ot K43.9 VENTRAL HERNIA WITHOUT OBSTRUCTION OR GA 04/03/2018 MASON SMITH MD, Ot Z12.11 ENCOUNTER FOR SCREENING FOR MALIGNANT NE 04/03/2018 MASON SMITH MD, Ot Z80.0 FAMILY HISTORY OF MALIGNANT NEOPLASM OF 04/04/2018 MASON SMITH MD, Ot Z01.818 ENCOUNTER FOR OTHER PREPROCEDURAL EXAMIN Procedures There is no data. Results Test Result Range Complete blood count (CBC) with automated white blood cell (WBC) differential - 12/14/16 04:35 Blood leukocytes automated count (number/volume) 9.3 10*3/uL 4.3-11.0 Blood erythrocytes automated count (number/volume) 4.47 10*6/uL 4.35-5.85 Venous blood hemoglobin measurement (mass/volume) 14.1 g/dL 13.3-17.7 Blood hematocrit (volume fraction) 41 % 40-54 Automated erythrocyte mean corpuscular volume 92 [foz_us] 80-99 Automated erythrocyte mean corpuscular hemoglobin (mass per erythrocyte) 32 pg 25-34 Automated erythrocyte mean corpuscular hemoglobin concentration measurement ( mass/volume) 34 g/dL 32-36 Automated erythrocyte distribution width ratio 13.2 % 10.0-14.5 Automated blood platelet count (count/volume) 223 10*3/uL 130-400 Automated blood platelet mean volume measurement 10.3 [foz_us] 7.4-10.4 Automated blood neutrophils/100 leukocytes 56 % 42-75 Automated blood lymphocytes/100 leukocytes 29 % 12-44 Blood monocytes/100 leukocytes 13 % 0-12 Automated blood eosinophils/100 leukocytes 2 % 0-10 Automated blood basophils/100 leukocytes 0 % 0-10 Blood neutrophils automated count (number/volume) 5.1 10*3 1.8-7.8 Blood lymphocytes automated count (number/volume) 2.6 10*3 1.0-4.0 Blood monocytes automated count (number/volume) 1.2 10*3 0.0-1.0 Automated eosinophil count 0.2 10*3/uL 0.0-0.3 Automated blood basophil count (count/volume) 0.0 10*3/uL 0.0-0.1 PT panel in platelet poor plasma by coagulation assay - 12/14/16 04:35 Prothrombin time (PT) in platelet poor plasma by coagulation assay 13.2 s 12.2-14.7 INR in platelet poor plasma or blood by coagulation assay 1.0 0.8-1.4 Activated partial thromboplastin time (aPTT) in platelet poor plasma bycoagulation assay - 12/14/16 04:35 Activated partial thromboplastin time (aPTT) in platelet poor plasma bycoagulation assay 31 s 24-35 Blood lactic acid measurement (moles/volume) - 12/14/16 04:35 Blood lactic acid measurement (moles/volume) 1.54 mmol/L 0.50-2.00 Comprehensive metabolic panel - 12/14/16 04:35 Serum or plasma sodium measurement (moles/volume) 140 mmol/L 135-145 Serum or plasma potassium measurement (moles/volume) 3.9 mmol/L 3.6-5.0 Serum or plasma chloride measurement (moles/volume) 107 mmol/L 98-107 Carbon dioxide 22 mmol/L 21-32 Serum or plasma anion gap determination (moles/volume) 11 mmol/L 5-14 Serum or plasma urea nitrogen measurement (mass/volume) 11 mg/dL 7-18 Serum or plasma creatinine measurement (mass/volume) 0.74 mg/dL 0.60-1.30 Serum or plasma urea nitrogen/creatinine mass ratio 15 NRG Serum or plasma creatinine measurement with calculation of estimated glomerular filtration rate > NRG Serum or plasma glucose measurement (mass/volume) 101 mg/dL 70-105 Serum or plasma calcium measurement (mass/volume) 9.0 mg/dL 8.5-10.1 Serum or plasma total bilirubin measurement (mass/volume) 0.6 mg/dL 0.1-1.0 Serum or plasma alkaline phosphatase measurement (enzymatic activity/volume) 54 U/L 40-136 Serum or plasma aspartate aminotransferase measurement (enzymatic activity/ volume) 23 U/L 5-34 Serum or plasma alanine aminotransferase measurement (enzymatic activity/volume ) 47 U/L 0-55 Serum or plasma protein measurement (mass/volume) 6.6 g/dL 6.4-8.2 Serum or plasma albumin measurement (mass/volume) 3.8 g/dL 3.2-4.5 Serum or plasma C reactive protein measurement (mass/volume) - 12/14/16 04:35 Serum or plasma C reactive protein measurement (mass/volume) 1.52 mg /dL 0.00-0.50 Bacterial blood culture - 12/14/16 04:48 Bacterial blood culture NG NRG Bacterial blood culture - 12/14/16 05:13 Bacterial blood culture NG NRG Complete blood count (CBC) with automated white blood cell (WBC) differential - 12/15/16 05:25 Blood leukocytes automated count (number/volume) 18.3 10*3/uL 4.3-11.0 Blood erythrocytes automated count (number/volume) 4.33 10*6/uL 4.35-5.85 Venous blood hemoglobin measurement (mass/volume) 13.5 g/dL 13.3-17.7 Blood hematocrit (volume fraction) 40 % 40-54 Automated erythrocyte mean corpuscular volume 92 [foz_us] 80-99 Automated erythrocyte mean corpuscular hemoglobin (mass per erythrocyte) 31 pg 25-34 Automated erythrocyte mean corpuscular hemoglobin concentration measurement ( mass/volume) 34 g/dL 32-36 Automated erythrocyte distribution width ratio 13.3 % 10.0-14.5 Automated blood platelet count (count/volume) 252 10*3/uL 130-400 Automated blood platelet mean volume measurement 10.5 [foz_us] 7.4-10.4 Automated blood neutrophils/100 leukocytes 79 % 42-75 Automated blood lymphocytes/100 leukocytes 12 % 12-44 Blood monocytes/100 leukocytes 9 % 0-12 Automated blood eosinophils/100 leukocytes 0 % 0-10 Automated blood basophils/100 leukocytes 0 % 0-10 Blood neutrophils automated count (number/volume) 14.5 10*3 1.8-7.8 Blood lymphocytes automated count (number/volume) 2.1 10*3 1.0-4.0 Blood monocytes automated count (number/volume) 1.6 10*3 0.0-1.0 Automated eosinophil count 0.0 10*3/uL 0.0-0.3 Automated blood basophil count (count/volume) 0.0 10*3/uL 0.0-0.1 Blood manual differential performed detection - 12/15/16 05:25 Blood monocytes/100 leukocytes 3 % NR Manual blood segmented neutrophils/100 leukocytes 83 % NRG Blood band neutrophils/100 leukocytes 2 % NRG Manual blood lymphocytes/100 leukocytes 8 % NRG Manual eosinophils/100 leukocytes in nose 0 % NRG Manual blood basophils/100 leukocytes 0 % NRG Blood lymphocytes variant/100 leukocytes 4 % NR Blood erythrocyte morphology finding identification [facility] Comprehensive metabolic panel - 12/15/16 05:25 Serum or plasma sodium measurement (moles/volume) 141 mmol/L 135-145 Serum or plasma potassium measurement (moles/volume) 4.0 mmol/L 3.6-5.0 Serum or plasma chloride measurement (moles/volume) 110 mmol/L 98-107 Carbon dioxide 22 mmol/L 21-32 Serum or plasma anion gap determination (moles/volume) 9 mmol/L 5-14 Serum or plasma urea nitrogen measurement (mass/volume) 13 mg/dL 7-18 Serum or plasma creatinine measurement (mass/volume) 0.73 mg/dL 0.60-1.30 Serum or plasma urea nitrogen/creatinine mass ratio 18 NRG Serum or plasma creatinine measurement with calculation of estimated glomerular filtration rate > NRG Serum or plasma glucose measurement (mass/volume) 114 mg/dL 70-105 Serum or plasma calcium measurement (mass/volume) 8.7 mg/dL 8.5-10.1 Serum or plasma total bilirubin measurement (mass/volume) 0.4 mg/dL 0.1-1.0 Serum or plasma alkaline phosphatase measurement (enzymatic activity/volume) 53 U/L 40-136 Serum or plasma aspartate aminotransferase measurement (enzymatic activity/ volume) 20 U/L 5-34 Serum or plasma alanine aminotransferase measurement (enzymatic activity/volume ) 45 U/L 0-55 Serum or plasma protein measurement (mass/volume) 6.3 g/dL 6.4-8.2 Serum or plasma albumin measurement (mass/volume) 3.6 g/dL 3.2-4.5 Complete blood count (CBC) with automated white blood cell (WBC) differential - 12/16/16 05:25 Blood leukocytes automated count (number/volume) 9.5 10*3/uL 4.3-11.0 Blood erythrocytes automated count (number/volume) 4.29 10*6/uL 4.35-5.85 Venous blood hemoglobin measurement (mass/volume) 13.4 g/dL 13.3-17.7 Blood hematocrit (volume fraction) 40 % 40-54 Automated erythrocyte mean corpuscular volume 92 [foz_us] 80-99 Automated erythrocyte mean corpuscular hemoglobin (mass per erythrocyte) 31 pg 25-34 Automated erythrocyte mean corpuscular hemoglobin concentration measurement ( mass/volume) 34 g/dL 32-36 Automated erythrocyte distribution width ratio 13.5 % 10.0-14.5 Automated blood platelet count (count/volume) 227 10*3/uL 130-400 Automated blood platelet mean volume measurement 10.4 [foz_us] 7.4-10.4 Automated blood neutrophils/100 leukocytes 52 % 42-75 Automated blood lymphocytes/100 leukocytes 38 % 12-44 Blood monocytes/100 leukocytes 9 % 0-12 Automated blood eosinophils/100 leukocytes 0 % 0-10 Automated blood basophils/100 leukocytes 1 % 0-10 Blood neutrophils automated count (number/volume) 4.9 10*3 1.8-7.8 Blood lymphocytes automated count (number/volume) 3.6 10*3 1.0-4.0 Blood monocytes automated count (number/volume) 0.8 10*3 0.0-1.0 Automated eosinophil count 0.0 10*3/uL 0.0-0.3 Automated blood basophil count (count/volume) 0.1 10*3/uL 0.0-0.1 Complete blood count (CBC) with automated white blood cell (WBC) differential - 04/02/18 10:00 Blood leukocytes automated count (number/volume) 8.1 10*3/uL 4.3-11.0 Blood erythrocytes automated count (number/volume) 4.94 10*6/uL 4.35-5.85 Venous blood hemoglobin measurement (mass/volume) 15.4 g/dL 13.3-17.7 Blood hematocrit (volume fraction) 45 % 40-54 Automated erythrocyte mean corpuscular volume 91 [foz_us] 80-99 Automated erythrocyte mean corpuscular hemoglobin (mass per erythrocyte) 31 pg 25-34 Automated erythrocyte mean corpuscular hemoglobin concentration measurement ( mass/volume) 35 g/dL 32-36 Automated erythrocyte distribution width ratio 13.4 % 10.0-14.5 Automated blood platelet count (count/volume) 297 10*3/uL 130-400 Automated blood platelet mean volume measurement 11.4 [foz_us] 7.4-10.4 Automated blood neutrophils/100 leukocytes 61 % 42-75 Automated blood lymphocytes/100 leukocytes 30 % 12-44 Blood monocytes/100 leukocytes 8 % 0-12 Automated blood eosinophils/100 leukocytes 1 % 0-10 Automated blood basophils/100 leukocytes 0 % 0-10 Blood neutrophils automated count (number/volume) 4.9 10*3 1.8-7.8 Blood lymphocytes automated count (number/volume) 2.4 10*3 1.0-4.0 Blood monocytes automated count (number/volume) 0.7 10*3 0.0-1.0 Automated eosinophil count 0.1 10*3/uL 0.0-0.3 Automated blood basophil count (count/volume) 0.0 10*3/uL 0.0-0.1 Methicillin resistant Staphylococcus aureus (MRSA) screening culture - 10:00 Methicillin resistant Staphylococcus aureus (MRSA) screening culture NEG NRG Encounters ACCT No. Visit Date/Time Discharge Status Pt. Type Provider Facility Loc./Unit Complaint [id number] 04/02/2018 09:19:00 04/02/2018 12:50:00 DIS Outpatient MASON SMITH MD [facility] ENDO SCREENING/FX HX COLON CA/GERD [id number] 04/02/2018 05:42:00 04/02/2018 12:50:00 DIS Outpatient MASON SMITH MD [facility] PREOP VENTRAL HERNIA [id number] 03/29/2018 05:38:00 03/29/2018 13:13:00 DIS Outpatient MASON SMITH MD [facility] PREOP COLONOSCOPY/EGD [id number] 03/27/2018 08:44:00 03/27/2018 23:59:59 CLS Outpatient MASON SMITH MD [facility] RAD RUQ PAIN [id number] 12/14/2016 05:55:00 12/16/2016 08:32:00 DIS Inpatient SIOMARA CASANOVA DO [facility] 4TH CELLULITIS R LOWER LEG FOOT [id number] 12/25/2014 07:43:00 12/25/2014 10:05:00 DIS Outpatient CORTEZ HA MD [facility] SCREENING [id number] 12/18/2014 06:33:00 12/18/2014 23:59:59 CLS Outpatient LELAND GARLAND, CORTEZ Lo [facility] PREOP FAMILY HISTORY; IRREGULAR BOWEL MOVEMENTS [id number] 04/11/2018 09:30:00 PEN Preadmit SARAH GARLAND, MASON Herron [facility] VENTRAL HERNIA [id number] 12/17/2014 10:45:00 Document Registration [id number] 12/17/2014 10:45:00 Document Registration [id number] 11/03/2010 15:16:00 Document Registration [id number] 04/03/2010 11:13:00 Document Registration [id number] 10/22/2008 03:48:00 Document Registration
[2018-04-11 11:05] VITALS: BP 142/78
[2018-04-11] MEDS ORDERED: ACETAMINOPHEN 500 MG TAB (TYLENOL) PO ONE (11:15)
[2018-04-11] MEDS ORDERED: ceFAZolin 2 GM IV Premixed 50 ML IV ONE (11:15)
[2018-04-11] MEDS ORDERED: oxyCODONE ER 10 MG (OxyCONTIN CR) TAB PO ONE (11:15)
[2018-04-11] MEDS ORDERED: PREGABALIN 75 MG (LYRICA) CAP PO ONE (11:15)
[2018-04-11] MEDS ORDERED: morphine INJ 10 MG/ML 1ML (SYR OR VIAL) IV PRN (11:15)
[2018-04-11] MEDS ORDERED: CELECOXIB 100 MG (CeleBREX) CAP PO ONE (11:15)
[2018-04-11] MEDS: LACTATED RINGERS 1,000 ML IV PRN ×2 (11:19→16:32)
[2018-04-11] MEDS ORDERED: BUP/EPI 0.5% 1:200,000 (SENSORCAINE) 30 ML VIAL ONE (13:19)
[2018-04-11] MEDS ORDERED: fentaNYL INJECTION 100 MCG/2 ML AMP ONE ×3 (13:22→15:20)
[2018-04-11] MEDS ORDERED: DEXAMETHASONE 10 MG/ML (DECADRON) 1 ML VIAL ONE (13:22)
[2018-04-11] MEDS ORDERED: ONDANSETRON 4 MG/2 ML (SDV) Z0FRAN ONE ×2 (13:22→15:20)
[2018-04-11] MEDS ORDERED: LIDOCAINE PF 2% 5 ML (XYLOCAINE) VIAL ONE (13:22)
[2018-04-11] MEDS ORDERED: proPOfol 200 MG/20 ML (DIPRIVAN) VIAL IV ONE ×2 (13:22→14:50)
[2018-04-11] MEDS ORDERED: ROCURONIUM 10 MG/ML 5 ML SYRINGE IV ONE ×2 (13:22→14:42)
[2018-04-11] MEDS ORDERED: MIDAZOLAM 2 MG/2 ML (VERSED) VIAL ONE (13:22)
[2018-04-11] MEDS ORDERED: LACTATED RINGERS 1,000 ML IV ONE (13:22)
[2018-04-11] MEDS ORDERED: SEVOFLURANE (ULTANE) 15 ML INHAL SOLN ONE ×10 (13:22→15:49)
--- NOTE | 2018-04-11 13:45 | Progress Note-Pre Operative ---
Pre-Operative Progress Note H&P Reviewed The H&P was reviewed, patient examined and no changes noted. Date Seen by Provider: Mar 19, 2018 Time Seen by Provider: 16:40 Date H&P Reviewed: Apr 11, 2018 Time H&P Reviewed: 12:55 Pre-Operative Diagnosis: Ventral hernia. Skin lesions MASON SMITH MD Apr 11, 2018 13:45
[2018-04-11] MEDS ORDERED: BUPIVACAINE 0.5% 30 ML (SENSORCAINE) VIAL ONE (15:11)
[2018-04-11] MEDS ORDERED: GLYCOPYRROLATE 0.2 MG/ML (ROBINUL) 2 ML VIAL ONE (15:11)
[2018-04-11] MEDS ORDERED: NEOSTIGMINE 1 MG/ML 5 ML SYRINGE ONE (15:11)
[2018-04-11] MEDS ORDERED: MEPERIDINE (DEMEROL) INJ 50 MG/ML ONE (15:19)
[2018-04-11] MEDS ORDERED: ONDANSETRON 4 MG/2 ML (SDV) Z0FRAN IVP PRN ×2 (15:30→16:00)
[2018-04-11] MEDS ORDERED: MEPERIDINE (DEMEROL) INJ 50 MG/ML IVP ONE (15:30)
[2018-04-11] MEDS ORDERED: fentaNYL INJECTION 100 MCG/2 ML AMP IVP ONE (15:30)
[2018-04-11] MEDS ORDERED: morphine INJ 10 MG/ML 1ML (SYR OR VIAL) IVP ONE (15:30)
--- NOTE | 2018-04-11 15:47 | Operative Report ---
Operative Report Date of Procedure/Surgery Apr 11, 2018 Surgeon (s) MASON SMITH MD [employer]or (s): N/A Post-Operative Diagnosis Same Procedure Performed Robotic assisted repair of ventral hernia with the mesh Excision of 1 cm skin lesionforehead Excision of 2 cm skin lesionleft lower back Description of Procedure Anesthesia Type: General Estimated blood loss (mL): Minimal Specimen(s) collected/removed Skin lesions 2 Description of the Procedure Indication for the procedures: This gentleman presented with a symptomatic ventral hernia superior to his umbilicus. He was offered repair using minimally invasive technique with the robotic assistance and mesh reinforcement. During the preoperative visit, he requested excision of this symptomatic 1 cm skin lesion over the right side of his forehead and a 2 cm skin lesion over the left lower back. I agreed to do so. Informed consent was obtained after reviewing the details of the operations, expected recovery, complications of wound infection, infection of the mesh and the potential for recurrence of the hernia. Description of procedures: Robotic assisted repair of ventral hernia with mesh: He was placed supine on the operative table and general anesthesia induced. 2 g of Ancef was administered intravenously as prophylaxis against wound infection. Sequential compression devices were placed around his legs, to minimize the risk of venous thrombosis. The right side of his body was lifted on soft roll to facilitate triangulation of the robotic system. Abdomen was prepared and draped in the usual sterile manner. Pneumoperitoneum was established using a Veress needle introduced over the right subcostal margin, along the mid clavicular line. Intra-abdominal pressure was maintained at 17 mmHg using carbon dioxide insufflation. A 12 mm trocar was placed and anatomy visualized using the high definition, 3- dimensional laparoscope, associated with da John system. 2 separate defects, 1.5 cm each, adjacent to each other, containing omentum where encountered. These involved the umbilicus and midline, about 2 cm cephalad to the umbilicus. Under direct view, I placed another millimeter trocar over the right side of the abdomen, along the midaxillary line, followed by an 8 mm trocar over the right lower quadrant of the abdomen. The robotic system was then docked in place. Omentum, contained within the herniae was reduced and the defects were closed primarily using 0V LOC, nonabsorbable suture with the robotic assistance, without any tension. The falciform ligament of the liver was taken down using the hook cautery, to allow room for mesh placement. A polypropylene mesh measuring 15.6 cm in diameter, attached to a self- retaining balloon system was chosen. It was introduced into the peritoneal cavity and held up using the balloon device. The edges of the mesh was secured to the abdominal wall using 20V LOC sutures, in a continuous fashion, with the robotic assistance. Hemostasis was satisfactory the operation concluded. The fascia over the 12 mm incisions was closed using #1 Vicryl. Skin incisions were closed using 4-0 Vicryl, in a subcuticular fashion. 0.5 percent Marcaine with epinephrine was infiltrated along the incisions, both preemptively and at the conclusion of the operation. Excision of 1 cm skin lesionforehead: After adequate antiseptic preparation, preemptive analgesia was established using 0.5 percent plain with epinephrine. An elliptical incision about 2 cm in length was made and the lesion excised. The defect was closed using interrupted 5-0 nylon sutures and a nonadherent dressing applied. Excision of 2 cm skin lesionleft lower back: After adequate antiseptic preparation, a similar excision was performed by making an incision about 2.5 cm in length. The defect was closed using 5-0 nylon, and an japanese interpreter fashion. He tolerated the procedures well, was extubated in the operating room and taken to the recovery room in a stable condition. Our PICTURE COPYIST administered a TAP block for postoperative analgesia, under ultrasound guidance, the end of the operation. Findings of the Procedure See operative report Allergies and Home Medications Allergies Coded Allergies: No Known Drug Allergies (Verified , 10/22/08) Home Medications Atorvastatin Calcium 10 Mg Tablet, 10 MG PO HS, (Reported) Patient Home Medication List Home Medication List Reviewed: Yes MASON SMITH MD Apr 11, 2018 15:47
[2018-04-11] MEDS ORDERED: OXYC1TAB87 PO (15:55)
--- NOTE | 2018-04-11 15:56 | Discharge Inst-Simple/Standard ---
Discharge Inst-Standard Discharge Medications New, Converted or Re-Newed RX: RX on Chart Patient Instructions/Follow Up Plan of Care/Instructions/FU: Band-Aids off in a.m. Incentive spirometry to be continued for a week. Follow up in 4 weeks Activity as Tolerated: No Goal: No lifting over 10 pounds Discharge Diet: No Restrictions MASON SMITH MD Apr 11, 2018 15:56
[2018-04-11] MEDS ORDERED: fentaNYL INJECTION 100 MCG/2 ML AMP IV PRN (16:00)
[2018-04-11] MEDS ORDERED: NALOXONE 0.4 MG/ML 1 ML (NARCAN) VIAL ONE (16:12)
[2018-04-11] MEDS ORDERED: LABETALOL HCL 20 MG/4 ML VIAL IV ONE (16:30)
[2018-04-11] MEDS ORDERED: RT-ALBUTEROL SULF 2.5 MG/3 ML PRE-MIX VIAL INH ONE (16:30)
[2018-04-11] MEDS ORDERED: LABETALOL HCL 20 MG/4 ML VIAL ONE (16:31)
[2018-04-11] MEDS ORDERED: RT-ALBUTEROL SULF 2.5 MG/3 ML PRE-MIX VIAL ONE (16:36)
[2018-04-11] MEDS: KETOROLAC 30 MG/ML VIAL IV SCH ×3 (16:37→23:03)
[2018-04-11] MEDS ORDERED: RT-ALBUTEROL SULF 2.5 MG/3 ML PRE-MIX VIAL INH SCH (16:45)
[2018-04-11 17:30] VITALS: BP 134/82
[2018-04-11 19:05] VITALS: BP 124/77
[2018-04-12] MEDS: LACTATED RINGERS 1,000 ML IV SCH ×2 (00:11→00:40)
[2018-04-12 00:27] VITALS: BP 119/58
[2018-04-12] MEDS: HYDROcodone/APAP 5 MG/325 MG (LORTAB) TAB PO PRN ×2 (02:41→08:53)
[2018-04-12 04:04] VITALS: BP 118/56
[2018-04-12] MEDS: KETOROLAC 30 MG/ML VIAL IV SCH ×2 (05:37→11:20)
--- NOTE | 2018-04-12 07:06 | Anesthesia-General Post-Op ---
General Patient Condition Mental Status/LOC: Same as Preop Cardiovascular: Satisfactory Nausea/Vomiting: Absent Respiratory: Satisfactory Pain: Controlled Complications: Absent Post Op Complications Complications None Follow Up Care/Instructions Patient Instructions None needed. Anesthesia/Patient Condition Patient Condition Patient is doing well, no complaints, stable vital signs, no apparent adverse anesthesia problems. No complications reported per nursing. LG CAMPOS CRNA Apr 12, 2018 07:06
[2018-04-12 07:51] VITALS: BP 103/63
--- NOTE | 2018-04-12 10:29 | Progress Note-Standard ---
Standard Progress Note Progress Notes/Assess & Plan Date Seen by a Provider: Apr 12, 2018 Time Seen by a Provider: 09:00 Progress/Assessment & Plan pain control adequate. Incisions dry. Reasonable motivation with using incentive spirometer. Could be discharged home this afternoon Final Diagnosis ventral hernia MASON SMITH MD Apr 12, 2018 10:29
[2018-04-12 12:08] VITALS: BP 127/58
[2018-04-12 14:18] VITALS: BP 127/58
== END 2018-04-12 13:30 | disposition home or self-care (01) ==
LOC: SDC 10:50 → 4TH 17:32 → SDC 04-12 13:30
PROVIDERS: ATTEND Surgery
DX: K43.9 Ventral hernia without obstruction or gangrene (principal); D23.39 Other benign neoplasm of skin of other parts of face; D23.5 Other benign neoplasm of skin of trunk; K21.9 Gastro-esophageal reflux disease without esophagitis; E66.9 Obesity, unspecified; Z68.33 Body mass index [BMI] 33.0-33.9, adult
CPT/HCPCS: 88304; 88305; 94640; 94664; 94760

== ENCOUNTER 2018-07-29 10:28 | Emergency (ER) | payer BC, OTHER ==
[~2018-07-29] VITALS: Ht 177.8 cm; Wt 102.5 kg
[~2018-07-29 10:28] MED LIST changes: +OXYC1TAB87 PO
--- NOTE | 2018-07-29 12:10 | Diagnostic Imaging Report ---
EXAMINATION: Right wrist. INDICATION: Wrist pain. Three views were obtained. There are no prior studies available for comparison. FINDINGS: There is no fracture, dislocation, or acute bony abnormality evident. There is mild narrowing of the radiocarpal joint. The soft tissues are unremarkable. IMPRESSION: There is no evidence for an acute bony abnormality. Dictated by: Dictated on workstation # [id number]
--- NOTE | 2018-07-29 12:14 | Diagnostic Imaging Report ---
EXAMINATION: Right hand at 11:56 a.m. INDICATION: Injury, hand pain. Three views were obtained. There are no prior studies available for comparison. FINDINGS: There is no fracture, dislocation, or acute bony abnormality evident. There is mild degenerative disease involving the radiocarpal joint. There is also mild narrowing of the PIP and DIP joints. The soft tissues are unremarkable. IMPRESSION: There is no evidence for an acute bony abnormality. Dictated by: Dictated on workstation # [id number]
--- NOTE | 2018-07-29 12:43 | ED Upper Extremity ---
General Chief Complaint: Upper Extremity Stated Complaint: R WRIST INJ Nursing Triage Note: pt amb to triage with complaint of right wrist pain. pt states he fell while walking his dog yesterday. states he has limited range of motion in wrist. denies any other injury. Nursing Sepsis Screen: No Definite Risk Source: patient Exam Limitations: no limitations History of Present Illness Date Seen by Provider: Jul 29, 2018 Time Seen by Provider: 11:35 Initial Comments 53-year-old male who presents to the emergency room with complaints of right wrist pain. He reports that while he was walking his dog yesterday he became tangled in the dog's leash and fell onto an extended right arm. He has increased pain with range of motion. Denies other injuries from the fall. He denies striking his head. Onset: yesterday Pain/Injury Location: right wrist Method of Injury: fell Modifying Factors: Worse With Movement Allergies and Home Medications Allergies Coded Allergies: No Known Drug Allergies (Verified , 04/11/18) Home Medications Atorvastatin Calcium 10 Mg Tablet, 10 MG PO HS, (Reported) Oxycodone HCl/Acetaminophen 1 Each Tablet, 1 TAB PO Q4H PRN for PAIN-MODERATE Prescribed by: MASON SMITH on 04/11/18 7147 Patient Home Medication List Home Medication List Reviewed: Yes Review of Systems Constitutional: see HPI; No chills, No fever Musculoskeletal: see HPI, joint pain (right wrist) All Other Systems Reviewed Negative Unless Noted: Yes Past Ngchcpa-Xitngu-Rjygkd Hx Past Med/Social Hx: Reviewed Nursing Past Med/Soc Hx Patient Social History Alcohol Use: Denies Use Recreational Drug Use: No Smoking Status: Former Smoker Type Used: Cigarettes Former Smoker, Quit: May 15, 1997 Recent Foreign Travel: No Contact w/Someone Who Travel: No Recent Infectious Disease Expo: No Recent Hopitalizations: No Immunizations Up To Date Tetanus Booster (TDap): Unknown Date of Influenza Vaccine: Feb 12, 2018 Seasonal Allergies Seasonal Allergies: No Past Medical History Surgeries: Yes (R ankle sx, L ing hernia, R shoulder sx) Abdominal, Orthopedic Respiratory: No Cardiac: No Neurological: Yes (CLOSED HEAD INJURY, SUBDURAL HEMATOMA) Traumatic Brain Injury Reproductive Disorders: No Sexually Transmitted Disease: No HIV/AIDS: No Gastrointestinal: Yes Irritable Bowel Musculoskeletal: Yes (RIGHT ANKLE SPRAIN 1986. ) Endocrine: No HEENT: No Cancer: No Psychosocial: No Integumentary: Yes (CELLULITIS RIGHT LEG MULTIPLE TIMES) Recent Skin Changes Blood Disorders: No Adverse Reaction/Blood Tranf: No Family Medical History Reviewed Nursing Family Hx Bowel cancer Colon cancer G8 BROTHER Completed stroke paternal grandfather Diabetes mellitus G8 BROTHER G8 SISTER FH: atrial fibrillation 19 MOTHER FH: heart disease G8 SISTER FH: lung cancer 19 FATHER FHx: congestive heart failure 19 MOTHER FHx: mitral valve repair G8 SISTER Physical Exam Vital Signs Vital Signs - First Documented 07/29/18 11:24 Pulse 66 Resp 20 B/P (MAP) 123/87 (99) Pulse Ox 96 O2 Delivery Room Air Capillary Refill : Less Than 3 Seconds Height, Weight, BMI Height: 5'10.00" Weight: 226lbs. 0.0oz. 102.216816do; 33.7 BMI Method:Stated General Appearance: WD/WN, no apparent distress Cardiovascular: normal peripheral pulses, regular rate, rhythm, no edema, no gallop, no JVD, no murmur Respiratory: chest non-tender, lungs clear, normal breath sounds, no respiratory distress, no accessory muscle use Wrist: Yes normal inspection, Yes normal ROM, Yes pain (right), Yes soft tissue tenderness (right); No swelling Hand: normal inspection, non-tender, no evidence of injury, normal ROM, Bilateral Neurologic/Psychiatric: alert, normal mood/affect, oriented x 3 Skin: normal color, warm/dry Progress/Results/Core Measures Results/Orders My Orders Vital Signs/I&O Blood Pressure Mean: 99 Diagnostic Imaging Diagonstic Imaging: Xray Plain Films/CT/US/NM/MRI: hand, other (wrist) Comments NAME: CATRACHITO MATHIAS [facility] REC#: [id number] PT STATUS: REG ER : 1965 PHYSICIAN: REN CHANG ADMIT DATE: 07/29/18/ER Signed Date of Exam: 07/29/18 HAND, RIGHT, 3 VIEWS EXAMINATION: Right hand at 11:56 a.m. INDICATION: Injury, hand pain. Three views were obtained. There are no prior studies available for comparison. FINDINGS: There is no fracture, dislocation, or acute bony abnormality evident. There is mild degenerative disease involving the radiocarpal joint. There is also mild narrowing of the PIP and DIP joints. The soft tissues are unremarkable. IMPRESSION: There is no evidence for an acute bony abnormality. Dictated by: Dictated on workstation # [id number] Dict: 07/29/18 1206 Trans: 07/29/182319 Interpreted by: TODD DEJESUS MD Electronically signed by: TODD DEJESUS MD 07/29/182319 NAME: CATRACHITO MATHIAS [facility] REC#: [id number] PT STATUS: REG ER : 1965 PHYSICIAN: REN CHANG ADMIT DATE: 07/29/18/ER Signed Date of Exam: 07/29/18 WRIST, RIGHT, 3 VIEWS OR MORE EXAMINATION: Right wrist. INDICATION: Wrist pain. Three views were obtained. There are no prior studies available for comparison. FINDINGS: There is no fracture, dislocation, or acute bony abnormality evident. There is mild narrowing of the radiocarpal joint. The soft tissues are unremarkable. IMPRESSION: There is no evidence for an acute bony abnormality. Dictated by: Dictated on workstation # [id number] Dict: 07/29/18 1206 Trans: 07/29/182328 Interpreted by: TODD DEJESUS MD Electronically signed by: TODD DEJESUS MD 07/29/182328 Reviewed: Reviewed by Me Departure Impression Primary Impression: Right wrist sprain Disposition: 01 HOME, SELF-CARE Condition: Stable/Unchanged Departure-Patient Inst. Decision time for Depature: 12:39 Referrals: SIOMARA CASANOVA DO (PCP/Family) Primary Care Physician Patient Instructions: Wrist Sprain (DC) Add. Discharge Instructions: Ice to the sore areas at 20 minute intervals. Wear the brace as needed for comfort. Tylenol and Motrin as needed for comfort. Follow-up with primary care provider as needed. Return back to the emergency room for worsening symptoms or concerns as needed. All discharge instructions reviewed with patient and/or family. Voiced understanding. Work/School Note: Work Release Form Date Seen in the Emergency Department: Jul 29, 2018 Return to Work: Jul 31, 2018 Restrictions: No Restrictions REN CHANG Jul 29, 2018 12:43
[2018-07-29 13:13] VITALS: BP 123/87
== END 2018-07-29 13:13 | disposition home or self-care (01) ==
LOC: EDUNIT# 10:28 → ER 10:29
DX: S63.501A Unspecified sprain of right wrist, initial encounter (principal); K58.9 Irritable bowel syndrome, unspecified; Z80.0 Family history of malignant neoplasm of digestive organs; Z82.49 Family history of ischemic heart disease and other diseases of the circulatory system; Z80.1 Family history of malignant neoplasm of trachea, bronchus and lung; Z87.891 Personal history of nicotine dependence; Z98.890 Other specified postprocedural states; Z87.820 Personal history of traumatic brain injury; W18.30XA Fall on same level, unspecified, initial encounter
CPT/HCPCS: 73110; 73130

== ENCOUNTER 2019-08-06 05:38 | Outpatient (CLI) | payer BC ==
[~2019-08-06] VITALS: Ht 177 cm; Wt 100.0 kg
[2019-08-06] MEDS ORDERED: ATOR10TA PO (09:41)
[2019-08-06] MEDS ORDERED: METF-397 PO (09:41)
== END 2019-08-06 09:47 | disposition home or self-care (01) ==
LOC: PREOP 05:38
PROVIDERS: ATTEND Surgery
DX: Z01.818 Encounter for other preprocedural examination (principal)

== ENCOUNTER 2019-08-13 07:03 | Day surgery (SDC) | payer BC ==
[~2019-08-13] VITALS: Ht 177.8 cm; Wt 100.0 kg
[~2019-08-13 07:03] MED LIST changes: +ATOR10TA PO; +METF-397 PO
[2019-08-13] MEDS ORDERED: HURRICAINE EXT TUBE (BENZOCAINE) XX PRN (07:30)
[2019-08-13] MEDS ORDERED: LACTATED RINGERS 1,000 ML IV STA (07:30)
[2019-08-13] MEDS ORDERED: LACTATED RINGERS 1,000 ML IV ONE (07:38)
[2019-08-13] MEDS ORDERED: proPOfol 200 MG/20 ML (DIPRIVAN) VIAL IV ONE (07:42)
[2019-08-13] MEDS ORDERED: MIDAZOLAM 2 MG/2 ML (VERSED) VIAL ONE (07:42)
[2019-08-13] MEDS ORDERED: KETAMINE/NaCl 50 MG/5 ML SYRINGE (ED ONLY) ONE (07:43)
[2019-08-13 07:48] VITALS: BP 123/93
[2019-08-13] MEDS ORDERED: HURRICAINE EXT TUBE (BENZOCAINE) ONE (08:05)
--- NOTE | 2019-08-13 08:52 | Progress Note-Pre Operative ---
Pre-Operative Progress Note H&P Reviewed The H&P was reviewed, patient examined and no changes noted. Date Seen by Provider: Aug 13, 2019 Time Seen by Provider: 08:51 Date H&P Reviewed: Aug 13, 2019 Time H&P Reviewed: 08:51 Pre-Operative Diagnosis: gerd, change in bowel habits, family history colon cancer SHAWN RUIZ DO Aug 13, 2019 08:52
[2019-08-13 09:25] VITALS: BP 127/81
[2019-08-13] MEDS ORDERED: PANT40TA2 PO (09:28)
--- NOTE | 2019-08-13 09:28 | Discharge Inst-Simple/Standard ---
Discharge Inst-Standard Discharge Medications New, Converted or Re-Newed RX: Transmitted to Pharmacy Patient Instructions/Follow Up Plan of Care/Instructions/FU: Andreina 4-6 weeks. Activity as Tolerated: Yes Discharge Diet: Regular Diet SHAWN RUIZ DO Aug 13, 2019 09:28
[2019-08-13 09:30] VITALS: BP_SYST 117; BP_SYST 125; BP_DIAS 71; BP_DIAS 80
--- NOTE | 2019-08-13 09:30 | Progress Note-Post Operative ---
Post-Operative Progess Note Surgeon (s)/Comb Machine Operator (s) Surgeon SHAWN RUIZ DO Comb Machine Operator: na Pre-Operative Diagnosis gerd, change in bowel habits, family history colon cancer Post-Operative Diagnosis gastritis, normal colon Procedure & Operative Findings Date of Procedure 08/13/19 Procedure Performed/Findings egd c biopsies, colonoscopy Anesthesia Type per mda Estimated Blood Loss Estimated blood loss (mL): none Specimens/Packing Specimens Removed antrum, ge SHAWN RUIZ DO Aug 13, 2019 09:30
[2019-08-13 10:00] VITALS: BP 128/74
[2019-08-13 10:05] VITALS: BP 128/74
--- NOTE | 2019-08-13 11:47 | OPERATIVE REPORT ---
DATE OF SERVICE: 08/13/2019 PREOPERATIVE DIAGNOSES: Gastroesophageal reflux disease, change in bowel habits, family history of colon cancer. POSTOPERATIVE DIAGNOSES: Gastritis, normal colon. PROCEDURES: EGD with biopsies, colonoscopy. SURGEON: Shawn Hdz DO ANESTHESIA: Per MDA. ESTIMATED BLOOD LOSS: None. COMPLICATIONS: None. SPECIMENS: Antrum and GE junction. INDICATIONS: The patient is a 54-year-old male with change in bowel habits, having some left lower quadrant abdominal pain at times. He has family history of colon cancer and he has GERD symptoms. The patient understands risks and benefits of procedure and wished to proceed with procedure and consent was signed in the chart. DESCRIPTION OF PROCEDURE: The patient was taken to the endoscopy suite, placed in left lateral recumbent position. Timeout was performed. Scope was inserted in mouth, down the esophagus, stomach and into the duodenum without difficulty. There were no polyps, mass or ulcerations within the duodenum. Scope was slowly retracted back into the stomach where it was further insufflated. Some gastritis appearance in the antrum. Biopsy was obtained. No other masses or ulcerations present. Scope was retroflexed just noting some benign appearing polyp. No other pathology. Scope was returned to its normal position, slowly withdrawn to the distal esophagus. Biopsy of the GE junction was obtained. No polyps, masses or ulcerations. No significant erythematous changes. Scope was then slowly retracted back until completely removed. Digital rectal exam was performed. There were no palpable polyps, masses or ulcerations. Scope was inserted in the rectum, advanced all the way to cecum with minimal difficulty. Prep was adequate. Scope was then slowly retracted back. There were no polyps, masses or ulcerations within the cecum, ascending, transverse, descending, sigmoid and into the rectum. Scope was also retroflexed noting no other pathology. Scope was returned to its normal position, slowly withdrawn until completely removed. The patient tolerated procedure well without any complications, taken to recovery room in stable condition. RECOMMENDATIONS: The patient will be started on Protonix 40 mg daily. He will follow up in the office in 4 to 6 weeks. We will need a repeat colonoscopy in 5 years due to family history of colon cancer. Any issues before that would be reevaluated at that time. Job ID: [id number] DocumentID: [id number] Dictated Date: 08/13/2019 09:32:36 Port Crane Operator Date: 08/13/2019 11:46:01 Dictated By: SHAWN HDZ DO
--- NOTE | 2019-08-16 13:52 | Anesthesia-General Post-Op ---
MAC Patient Condition Mental Status/LOC: Same as Preop Cardiovascular: Satisfactory Nausea/Vomiting: Absent Respiratory: Satisfactory Pain: Controlled Complications: Absent Post Op Complications Complications None Follow Up Care/Instructions Patient Instructions None needed. Anesthesiology Discharge Order Discharge Order Anesthesia Post-dated progress note. Patient was seen after the procedure on 08-13-19 at 0950 and he was doing well, no complaints, stable vital signs, no apparent adverse anesthesia problems. KENDRA VILLALTA DO Aug 16, 2019 13:52
== END 2019-08-13 10:10 | disposition home or self-care (01) ==
LOC: ENDO 07:03
PROVIDERS: ATTEND Surgery
DX: K29.70 Gastritis, unspecified, without bleeding (principal); R19.4 Change in bowel habit; E78.5 Hyperlipidemia, unspecified; Z80.0 Family history of malignant neoplasm of digestive organs; Z87.891 Personal history of nicotine dependence; Z79.899 Other long term (current) drug therapy

== ENCOUNTER 2021-05-26 05:58 | Emergency (ER) | payer BC ==
[~2021-05-26] VITALS: Ht 177 cm; Wt 97.0 kg
[~2021-05-26 05:58] MED LIST changes: +CLIN-144 PO; -CLIN300C11 PO; +PANT40TA2 PO; -POTA99TA21 PO; +POTA99TA26 PO
--- NOTE | 2021-05-26 06:45 | ED Upper Extremity ---
General Chief Complaint: Trauma-Non Activation Stated Complaint: FALL,HEAD INJURY,SORE NECK Nursing Triage Note: fall after tangled in dogs leash Exam Limitations: no limitations (ALYSA TESFAYE STUDENT) History of Present Illness Date Seen by Provider: May 26, 2021 Time Seen by Provider: 06:25 Initial Comments Mr. Zurita is a 55yoM with history of subdural hematoma 2008 who presents today with cc of head and neck pain after a mechanical fall around 0345. He was taking his dog outside when the leash tripped him and he fell on concrete hitting his head directly at vertex as well as both shoulders and elbows. He did not lose consciousness but reports 2-3 minutes of numbness down through both arms into fingertips. Patient was able to get up, take Tylenol and go to work this morning. He presents today for evaluation after worsening pain set in throughout the morning. He does not have any numbness or tingling at this time. He denies visual changes, loss of bowel and bladder, N/V and memory loss. Onset: this morning Pain/Injury Location: bilateral shoulder, bilateral elbow Method of Injury: fell (ALYSA TESFAYE MED STUDENT) Allergies and Home Medications Allergies Coded Allergies: No Known Drug Allergies (Verified , 04/11/18) Patient Home Medication List Home Medication List Reviewed: Yes (BERONICA MAURICE MD) Atorvastatin Calcium (Lipitor) 10 Mg Tablet, 10 MG PO HS, (Reported) Entered as Reported by: DORA FRIEDMAN on 08/06/19 0941 Cyclobenzaprine HCl (Cyclobenzaprine HCl) 10 Mg Tablet, 10 MG PO Q8H PRN for muscle spasm Prescribed by: BERONICA MAURICE on 05/26/21 0740 Metformin HCl (Metformin HCl) 500 Mg Tablet, 500 MG PO DAILY, (Reported) Entered as Reported by: DORA FRIEDMAN on 08/06/19 0941 Pantoprazole Sodium (Protonix) 40 Mg Tablet.dr, 40 MG PO DAILY Prescribed by: SHAWN RUIZ on 08/13/19 0928 Review of Systems Constitutional: No chills, No diaphoresis, No dizziness, No fever, No weakness EENTM: No hearing loss, No blurred vision, No vision loss, No throat pain Respiratory: No cough, No short of breath Cardiovascular: No chest pain, No palpitations Gastrointestinal: No abdominal pain, No melena, No nausea, No vomiting Genitourinary: No dysuria, No hematuria Musculoskeletal: back pain, muscle stiffness, neck pain Skin: no symptoms reported Psychiatric/Neurological: No Symptoms Reported (ALYSA TESFAYE) Past Yabmkoj-Oqdxui-Iszstb Hx Patient Social History Tobacco Use?: No Smoking Status: Former Smoker Substance use?: No Alcohol Use?: No (ALYSA TESFAYE) Immunizations Up To Date Tetanus Booster (TDap): Unknown Influenza Vaccine Up-to-Date: Yes; Up-to-Date First/Initial COVID19 Vaccinat: Second COVID19 Vaccination Brendan: Third COVID19 Vaccination Date: (ALYSA TESFAYE) Seasonal Allergies Seasonal Allergies: No (ALYSA TESFAYE) Past Medical History Surgeries: Yes (R ankle sx, L ing hernia, R shoulder sx) Abdominal, Orthopedic Respiratory: No Cardiac: Yes High Cholesterol Neurological: Yes (CLOSED HEAD INJURY, SUBDURAL HEMATOMA) Headaches /Migraines, Traumatic Brain Injury Reproductive Disorders: No Sexually Transmitted Disease: No HIV/AIDS: No Genitourinary: No Gastrointestinal: Yes Gastroesophageal Reflux, Irritable Bowel Musculoskeletal: Yes (RIGHT ANKLE SPRAIN 1986. ) Endocrine: No HEENT: No Cancer: No Psychosocial: No Integumentary: Yes (CELLULITIS RIGHT LEG MULTIPLE TIMES) Recent Skin Changes Blood Disorders: No Adverse Reaction/Blood Tranf: No (N/A) (ALYSA TESFAYE) Family Medical History Bowel cancer Colon cancer G8 BROTHER Colon cancer G8 BROTHER Completed stroke paternal grandfather Diabetes mellitus G8 BROTHER G8 SISTER FH: atrial fibrillation 19 MOTHER FH: heart disease G8 SISTER FH: lung cancer 19 FATHER FHx: congestive heart failure 19 MOTHER FHx: mitral valve repair G8 SISTER Physical Exam Vital Signs Vital Signs - First Documented 05/26/21 05/26/21 06:11 07:53 Temp 37.0 Pulse 80 Resp 20 B/P (MAP) 136/88 (104) Pulse Ox 97 O2 Delivery Room Air (BERONICA MAURICE MD) Vital Signs Capillary Refill : (BROADHURST,ALYSA MED STUDENT) Height, Weight, BMI Height: 5'10.00" Weight: 226lbs. 0.0oz. 102.002696pn; 30.00 BMI Method:Stated General Appearance: WD/WN, no apparent distress HEENT: PERRL/EOMI, TMs normal, pharynx normal Neck: No full range of motion (limited by pain); tender lateral (muscular pain); No tender midline Cardiovascular: regular rate, rhythm, no edema, no murmur Respiratory: chest non-tender, lungs clear, normal breath sounds, no respiratory distress, no accessory muscle use Gastrointestinal: normal bowel sounds, non tender, soft Back: normal inspection, no vertebral tenderness Shoulder: normal inspection, normal ROM, pain, soft tissue tenderness Elbow/Forearm: normal inspection, normal ROM, Bilateral, soft tissue tenderness Wrist: Yes normal inspection, Yes non-tender, Yes no evidence of injury, Yes normal ROM Hand: normal inspection, non-tender, no evidence of injury, normal ROM, Bilateral Neurologic/Tendon: normal sensation, normal motor functions, normal tendon functions, no evidence tendon injury Neurologic/Psychiatric: 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 Fell and hit his head. No LOC. Complains of mild BRYANT with cervical spine pain, brief "numbness" to BUE which has resolved. Left elbow discomfort. No other injury. No nausea/vomiting. no vision change. No anticoagulants/baby asa. Physical exam pertinent for posterior scalp TTP. also C4,5,6,7 midline tenderness to palpation (cervical collar placed at triage). HEENT WNL. rest of neuro exam unremarkable. CV RRR, Lungs Clear Bilat. Left elbow good ROM, no bony point tenderness, NVI. Assessment: concussion with cervical spine pain Plan: CT's head and cervical spine; reviewed and normal. patient's ccollar removed. good active ROM with no return of neuro complaints. home with flexeril, NSAIDS and off work 3 days. return precautions given. (BERONICA MAURICE MD) Diagnostic Imaging Diagonstic Imaging: CT Comments [facility], [place] NAME: CATRACHITO ZURITA REC#: [id number] PT STATUS: REG ER : 1965 PHYSICIAN: BERONICA MAURICE MD ADMIT DATE: 05/26/21/ER Signed Date of Exam:05/26/21 CT HEAD/CERVICAL SPINE WO EXAMINATION: CT head and CT cervical spine without contrast. TECHNIQUE: Multiple contiguous axial images were obtained through the brain and cervical spine without the use of intravenous contrast. Sagittal and coronal reformations through the cervical spine were then performed. All CT scans use one or more of the following dose optimizing techniques: automated exposure control, MA and/or KvP adjustment based on patient size and exam type or iterative reconstruction. HISTORY: Head and neck pain after fall COMPARISON: None available. FINDINGS: HEAD: The ventricles and sulci are normal. No abnormal attenuation of brain parenchyma is present. No acute intracranial hemorrhage or abnormal extra-axial fluid collections are present. Calcification of the intracranial ICAs. No hyperdense vessel. The calvarium is intact. The mastoid air cells are clear. The visualized paranasal sinuses are clear. The orbits are normal. C-SPINE: Vertebral body height and alignment are preserved. No acute fracture, dislocation, or destructive osseous process. No significant facet hypertrophy. No significant central canal or neuroforaminal stenosis. The paraspinous soft tissues are normal. The visualized thyroid gland is normal. The visualized lung apices are normal. IMPRESSION: 1. No acute intracranial abnormality. 2. No cervical spine fracture. Dictated by: Dictated on workstation # [id number] Dict: 05/26/21723 Trans: 05/26/2137 [facility] [id number] Interpreted by: BOB WILL DO Electronically signed by: BOB WILL DO 05/26/21 0737 (BERONICA MAURICE MD) Departure Impression Primary Impression: Minor head injury Qualified Codes: S09.90XA - Unspecified injury of head, initial encounter Additional Impression: Cervical strain, acute Qualified Codes: S16.1XXA - Strain of muscle, fascia and tendon at neck level, initial encounter Disposition: 01 HOME, SELF-CARE Condition: Stable Departure-Patient Inst. Decision time for Depature: 07:38 (BERONICA MAURICE MD) Referrals: SIOMARA CASANOVA DO (PCP/Family) Primary Care Physician Patient Instructions: Minor Head Injury (DC), Cervical Sprain ED Add. Discharge Instructions: Tylenol extra strength 2 tablets every 6 hours for pain or Ibuprofen 600mg (3 tablets) every 6 hours for pain with food. Muscle relaxer (flexeril) 1/2 -1 tablet every 8 hours for muscle spasm. You can alternate heat and ice packs to the sore muscles of your upper back/ neck area for pain as well. Return to the ER for any return of or worsening numbness, tingling or weakness in your arms or legs. Follow up with your family doctor. Scripts Cyclobenzaprine HCl (Cyclobenzaprine HCl) 10 Mg Tablet 10 MG PO Q8H PRN for muscle spasm, #12 TAB Prov: BERONICA MAURICE MD 05/26/21 Work/School Note: Work Release Form Date Seen in the Emergency Department: May 26, 2021 Return to Work: May 29, 2021 Verification and Attestation of Medical Student E/M Service A medical student performed and documented this service in my presence. I reviewed and verified all information documented by the medical student and made modifications to such information, when appropriate. I personally performed the physical exam and medical decision making. Beronica Maurice, May 26, 2021,07:37 (BERONICA MAURICE MD) Copy Copies To 1: SIOMARA CASANOVA AMANDA MED STUDENT May 26, 2021 06:45 BERONICA MAURICE MD May 26, 2021 07:41
--- NOTE | 2021-05-26 07:32 | Diagnostic Imaging Report ---
EXAMINATION: CT head and CT cervical spine without contrast. TECHNIQUE: Multiple contiguous axial images were obtained through the brain and cervical spine without the use of intravenous contrast. Sagittal and coronal reformations through the cervical spine were then performed. All CT scans use one or more of the following dose optimizing techniques: automated exposure control, MA and/or KvP adjustment based on patient size and exam type or iterative reconstruction. HISTORY: Head and neck pain after fall COMPARISON: None available. FINDINGS: HEAD: The ventricles and sulci are normal. No abnormal attenuation of brain parenchyma is present. No acute intracranial hemorrhage or abnormal extra-axial fluid collections are present. Calcification of the intracranial ICAs. No hyperdense vessel. The calvarium is intact. The mastoid air cells are clear. The visualized paranasal sinuses are clear. The orbits are normal. C-SPINE: Vertebral body height and alignment are preserved. No acute fracture, dislocation, or destructive osseous process. No significant facet hypertrophy. No significant central canal or neuroforaminal stenosis. The paraspinous soft tissues are normal. The visualized thyroid gland is normal. The visualized lung apices are normal. IMPRESSION: 1. No acute intracranial abnormality. 2. No cervical spine fracture. Dictated by: Dictated on workstation # [id number]
[2021-05-26] MEDS ORDERED: CYCL10TA25 PO (07:40)
[2021-05-26] MEDS ORDERED: IBUPROFEN 600 MG (MOTRIN) TAB PO ONE (07:45)
[2021-05-26 07:53] VITALS: BP 136/92
== END 2021-05-26 07:53 | disposition home or self-care (01) ==
LOC: EDUNIT# 05:58 → ER 06:01
DX: S16.1XXA Strain of muscle, fascia and tendon at neck level, initial encounter (principal); S09.90XA Unspecified injury of head, initial encounter; E78.00 Pure hypercholesterolemia, unspecified; K21.9 Gastro-esophageal reflux disease without esophagitis; Z87.891 Personal history of nicotine dependence; Z79.899 Other long term (current) drug therapy; W01.198A Fall on same level from slipping, tripping and stumbling with subsequent striking against other object, initial encounter
CPT/HCPCS: 70450; 72125

== ENCOUNTER → 2021-07-06 | Outpatient (CLI) | payer BC ==
[~2021-07-06] MED LIST changes: +CYCL10TA25 PO; +GADOTERATE 0.5 MMOL/ML (CLARISCAN) 20 ML VIAL IV ONE
--- NOTE | 2021-07-06 19:08 | Diagnostic Imaging Report ---
PROCEDURE: MR imaging of the brain with and without contrast. TECHNIQUE: Multiplanar, multisequence MR imaging of the brain was performed with and without contrast. INDICATION: Increasing head pain. Previous concussions as well as remote episode of intracranial hemorrhage. COMPARED with head CT performed 05/26/2011. FINDINGS: There are no foci of abnormal diffusion restriction. There were no findings of an acute or subacute ischemic infarct. No focal or generalized cerebral edema. No evidence for an elevation of the intracranial pressures. No mass or mass effect. There are no abnormal extra-axial fluid collections. After contrast was administered, there was no abnormal parenchymal or meningeal enhancement. No suspicious white matter pathology. Basilar cisterns patent. There is no sulcal effacement. The wood-white matter differentiations are maintained. Orbital contents unremarkable. The paranasal sinuses nonacute with mild membrane thickening involving a few ethmoid air cells and aplastic frontal sinuses. The mastoids are clear. No cerebellopontine angle, mass or mass effect. The orbital contents normal. IMPRESSION: There is an unremarkable pre and postcontrast brain MRI. Dictated by: Dictated on workstation # [id number]
== END ==
LOC: RAD 13:15
PROVIDERS: ATTEND Family Medicine
DX: R51.9 Headache, unspecified (principal)
CPT/HCPCS: 70553

== ENCOUNTER → 2022-07-07 | Outpatient (CLI) | payer BC, OTHER ==
--- NOTE | 2022-07-07 14:15 | Diagnostic Imaging Report ---
PROCEDURE: MR imaging of the brain with and without contrast. TECHNIQUE: Multiplanar, multisequence MR imaging of the brain was performed with and without contrast. INDICATION: Chronic headaches. FINDINGS: The ventricles and sulci are within normal limits. No sulcal effacement or midline shift is detected. Diffusion-weighted images are unremarkable. No diffusion restriction is detected. The normal expected flow-voids within the carotid siphons are seen. No acute intra-axial or extra-axial hemorrhage is detected. No abnormal enhancement following contrast administration is detected. Corpus callosum is unremarkable. Sella and parasellar structures are unremarkable. IMPRESSION: Unremarkable pre and post contrast MRI of the brain. Dictated by: Dictated on workstation # [id number]
== END ==
LOC: RAD 12:44
PROVIDERS: ATTEND Family Medicine
DX: R51.9 Headache, unspecified (principal)
CPT/HCPCS: 70553

== ENCOUNTER → 2022-07-12 | Outpatient (RCR) | payer OTHER ==
[~2022-07-12] MED LIST changes: -GADOTERATE 0.5 MMOL/ML (CLARISCAN) 20 ML VIAL IV ONE
== END ==
PROVIDERS: ATTEND Podiatrist
DX: M25.371 Other instability, right ankle (principal); R53.1 Weakness

== ENCOUNTER 2022-08-12 12:52 | Outpatient (RCR) | payer OTHER | END 2022-08-12 13:41 | disposition home or self-care (01) | PROVIDERS: ATTEND Podiatrist | DX: M25.371 Other instability, right ankle (principal) ==

== ENCOUNTER 2022-08-24 19:23 | Outpatient (CLI) | payer OTHER | END 2022-08-25 06:45 | disposition home or self-care (01) | LOC: SLEEP 19:23 | PROVIDERS: ATTEND Psychiatry & Neurology Neurology | DX: G47.10 Hypersomnia, unspecified (principal); R51.9 Headache, unspecified; R06.83 Snoring; I10 Essential (primary) hypertension | CPT/HCPCS: 95810 ==